=== PATIENT | female | born 1955 | race Caucasian/White ===

== ENCOUNTER → 2020-12-18 08:31 | Outpatient (BNVA) | payer MEDICARE, OTHER, SELFPAY | PROVIDERS: PCP Pediatrics; Visit Provider Hospitalist | DX: R91.8 Other nonspecific abnormal finding of lung field (principal); J70.1 Chronic and other pulmonary manifestations due to radiation; J47.9 Bronchiectasis, uncomplicated; Z79.51 Long term (current) use of inhaled steroids | CPT/HCPCS: 99212 ==

== ENCOUNTER 2021-03-29 09:20 | Outpatient (REF) | payer MEDICARE, OTHER, SELFPAY ==
--- NOTE | ~2021-03-29 | CT_ITS ---
EXAMINATION: CT CHEST WITHOUT CONTRAST CLINICAL INFORMATION: Pulmonary fibrosis pulmonary nodules COMPARISON: Previous chest CT 03/14/2020 TECHNIQUE: Multidetector volumetric CT imaging of the chest was done. Axial MIP volume rendering provided. Sagittal and coronal reformatted images were obtained. This CT examination was performed using dose optimization techniques as appropriate, variously including the following: *Automated exposure control *Adjustment of mA and/or kV according to patient size (this includes techniques or standardized protocols for targeted exams where dose is matched to indication/reason for exam; i.e. extremities or head) *Use of iterative reconstruction technique DLP: 103 mGy-cm FINDINGS: LUNGS: There is biapical pleural parenchymal scarring. There are several small peripheral or subpleural apical pulmonary nodules probably related to scarring that are stable. The largest measures 7 mm in the left upper lobe axial image 26 series 6. There are increased peripheral interstitial markings seen in the left anterior upper lobe probably related to post radiation changes. There is an area of mild bronchial wall thickening and new peribronchial nodules in the left upper lobe, largest pulmonary nodule measuring 3 mm axial image 82 series 6. There are stable small peribronchial nodules or tree-in-bud appearance in the posterior segment of the right upper lobe axial image 89 series 6. There are new areas of mild bronchial wall thickening and peribronchial nodules seen in both lower lobes, for example axial image 117 series 6 near the esophagus and aorta and in the right lower lobe near the spine axial image 119 series 6 that are new. There are areas of bronchial wall thickening and peribronchial nodules seen in the inferior segment of the lingula axial image 126 and the left lower lobe axial image 126 series 6 that are stable. There is chronic atelectasis or scarring in the right middle lobe and lingula at the lung bases for example axial image 134 and 144 series 6 that is stable. There is bronchial wall thickening and peribronchial nodules in the left lower lobe axial image 155 series 6 that is stable. MEDIASTINUM: The thyroid gland is prominent. There are no enlarged hilar or mediastinal lymph nodes. The heart does not appear enlarged. There is coronary artery calcification. There is no pericardial effusion. The thoracic aorta is normal in caliber. PLEURA: There is no pleural effusion. No pleural mass or thickening. AXILLA: The left breast has been removed. There are surgical clips in the left axilla. No chest wall mass or enlarged axillary lymph nodes are seen. UPPER ABDOMEN: Unremarkable. OSSEOUS STRUCTURES: There are mild degenerative changes of the spine. CT/CT chest wo con IMPRESSION: Stable biapical pleural parenchymal scarring. Multiple areas of bronchial wall thickening and peribronchial nodules or tree-in-bud appearance suggestive of airways disease. There are new areas seen in both lower lobes compared to most recent exam February 2020.
== END 2021-03-29 09:21 | disposition home or self-care (01) ==
LOC: HO.CT 09:20
PROVIDERS: PCP Pediatrics; Visit Provider Hospitalist
DX: J84.10 Pulmonary fibrosis, unspecified (principal); R91.8 Other nonspecific abnormal finding of lung field; Z85.3 Personal history of malignant neoplasm of breast
CPT/HCPCS: 71250

== ENCOUNTER → 2021-10-08 09:34 | Outpatient (BNVA) | payer MEDICARE, OTHER, SELFPAY | PROVIDERS: PCP Pediatrics; Visit Provider Hospitalist | DX: J70.1 Chronic and other pulmonary manifestations due to radiation (principal); J47.9 Bronchiectasis, uncomplicated; R91.8 Other nonspecific abnormal finding of lung field | CPT/HCPCS: 99212 ==

== ENCOUNTER → 2021-12-10 08:04 | Outpatient (BNVA) | payer MEDICARE, OTHER, SELFPAY | PROVIDERS: PCP Pediatrics; Visit Provider Nurse Practitioner Family | DX: G20 Parkinson's disease (principal); R91.8 Other nonspecific abnormal finding of lung field; J70.1 Chronic and other pulmonary manifestations due to radiation; Z79.899 Other long term (current) drug therapy | CPT/HCPCS: 99212 ==

== ENCOUNTER → 2022-04-15 08:02 | Outpatient (BNVA) | payer MEDICARE, OTHER, SELFPAY | PROVIDERS: PCP Pediatrics; Visit Provider Nurse Practitioner Family | DX: G20 Parkinson's disease (principal) | CPT/HCPCS: 99212 ==

== ENCOUNTER → 2022-09-26 15:41 | Outpatient (BNVA) | payer MEDICARE, OTHER, SELFPAY | PROVIDERS: PCP Pediatrics; Visit Provider Hospitalist | DX: J47.9 Bronchiectasis, uncomplicated (principal); J70.1 Chronic and other pulmonary manifestations due to radiation; J18.9 Pneumonia, unspecified organism; R91.8 Other nonspecific abnormal finding of lung field | CPT/HCPCS: 99212 ==

== ENCOUNTER → 2022-10-03 08:02 | Outpatient (BNVA) | payer MEDICARE, OTHER, SELFPAY | PROVIDERS: PCP Pediatrics; Visit Provider Nurse Practitioner Family | DX: G20 Parkinson's disease (principal) | CPT/HCPCS: 99212 ==

== ENCOUNTER → 2023-02-03 08:15 | Outpatient (BNVA) | payer MEDICARE, OTHER, SELFPAY | PROVIDERS: PCP Pediatrics; Visit Provider Nurse Practitioner Family | DX: G20 Parkinson's disease (principal); J34.89 Other specified disorders of nose and nasal sinuses | CPT/HCPCS: 99212 ==

== ENCOUNTER 2023-07-18 08:28 | Outpatient (AMB) | payer MEDICARE, OTHER, SELFPAY ==
--- NOTE | 2023-07-18 08:29 | A.OFFVIS_ITS ---
Intake Vital Signs 07/18/23 08:47 Height 5 ft 5 in Weight 124 lb 2 oz BMI 20.7 BP 108/74 Blood Pressure Location Lt brachial Position Sitting Pulse 119 H Pulse Source Pulse Oximeter Pulse Oximetry (%) 86 L Oxygen Delivery Method Room Air Intake Visit Reasons: 4m follow up Parkinson's-LVM Intake Note: Patient present today for 4 month Parkinson follow up visit. 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 Pt denies any significant interval medical history changes. Pt's current PD medication regimen:? Carbidopa levodopa 1 tab bid Do medication effects last between doses:? Yes Do you notice your medications wearing off or kicking in:? No ADL's:? Independent Swallowing:? 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 No issues Orthostatic lightheadedness:? Occasional. Trying to drink better Constipation:? No constipation, but has had more flatulence- using OTC gas-x which helps Freezing:? Occasional leg hesitation- transient Stiffness:? Some leg stiffness w/ the hesitation Tremor:? She does not notice it Falls:? No falls Hallucinations:? None Memory:? Memory is good Sleep:? Sleeping ok- needs to void once a night Exercise:? She is trying to stretching and walking daily [facility] Medical History Breast cancer Bronchiectasis COVID-19 virus infection Parkinson disease Pulmonary nodules Radiation fibrosis of lung Recurrent pneumonia Family History Father Colon cancer Pancreatic cancer Mother Heart disease Brother Heart disease Sister Breast cancer Social History Alcohol intake: never Patient Tobacco Use Status: Never used Tobacco Review of Systems Const All systems reviewed & are unremarkable except as noted in HPI and below Physical Exam Vital Signs: Last Vital Signs Pulse 119 H 07/18/23 08:47 BP 108/74 07/18/23 08:47 Pulse Ox 86 L 07/18/23 08:47 Oxygen Delivery Method Room Air 07/18/23 08:47 BMI result Body Mass Index 20.7 Const General: cooperative and no acute distress HEENT Head: Yes normocephalic Resp Effort & Inspection: normal respiratory effort and able to speak in complete sentences Neuro Other: General: A&O x's 3 Expression:? Mild decreased expression Voice:? Soft voice Tremor:? No tremor Tone:? Mild tone in left elbow FFM:? Mildly decreased Foot taps:? Mildly decreased Gait:? Stands easily, decreased arm swing, short steps, steady gait. Psych:? Pleasant affect Psych Appearance: grossly normal Mental Status: mental status grossly normal Affect: normal affect Assessment & Plan Assessment & Plan (1) Parkinson's disease without dyskinesia: Code(s): G20.A1 - Parkinson's disease without dyskinesia, without mention of fluctuations (2) Difficulty swallowing solids: Code(s): R13.10 - Dysphagia, unspecified Plan Continue carbidopa-levodopa 25-100 mg 1 tab b.i.d. Pt plans to travel to [place] in December- may need to adjust/increase CD-LD to accommodate travel plans. Pt may also consider trying walking poles for her trip. Monitor swallowing- if worsens consider SHIPPING SERVICES SALES REPRESENTATIVE. Continue regular exercising. Pt sees dermatology annually for skin checks. f/u in November or sooner prn. Coding Level of Care Code Est Pt Level 4 (18642) Diagnoses Parkinson's disease without dyskinesia G20.A1 Difficulty swallowing solids R13.10
[2023-07-18 08:47] VITALS: BP 108/74; PULSE 119; O2SAT 86; BMI 20.7
== END 2023-07-18 09:30 | disposition home or self-care (01) ==
PROVIDERS: Visit Provider Nurse Practitioner Family
DX: G20.A1 Parkinson's disease without dyskinesia, without mention of fluctuations (principal); R13.10 Dysphagia, unspecified
CPT/HCPCS: 99214

== ENCOUNTER → 2023-07-18 08:28 | Outpatient (BNVA) | payer MEDICARE, OTHER, SELFPAY | PROVIDERS: Visit Provider Nurse Practitioner Family | DX: G20.A1 Parkinson's disease without dyskinesia, without mention of fluctuations (principal); R13.10 Dysphagia, unspecified | CPT/HCPCS: 99212 ==

== ENCOUNTER 2023-12-15 08:06 | Outpatient (AMB) | payer MEDICARE, OTHER, SELFPAY ==
--- NOTE | 2023-12-15 08:16 | MHC.OFFVIS ---
Intake Vital Signs 12/15/23 08:17 Height 5 ft 5 in Weight 125 lb BMI 20.8 BP 116/62 Blood Pressure Location Rt brachial Position Sitting Respiration 16 Pulse 80 Pulse Source Pulse Oximeter Pulse Oximetry (%) 96 Oxygen Delivery Method Room Air Intake Visit Reasons: 4m follow up Parkinson's - LVM w/ address Intake Note: Pt presents for 4 month follow up for Parkinson's. 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 Pt denies any significant interval medical history changes. Pt's current PD medication regimen:? Carbidopa levodopa 1 tab bid Do medication effects last between doses:? Yes Do you notice your medications wearing off or kicking in:? No ADL's:? Independent Swallowing:? No issues as long as she is taking small bites, alternates w/ fluids as needed Drooling:? No issues Orthostatic lightheadedness:? Occasional. Still trying to drink better Constipation:? No constipation. Freezing:? Occasional leg hesitation- transient Stiffness:? Some leg stiffness w/ the hesitation Tremor:? She does not notice it Falls:? She did have a fall- was carrying bags and a puppy while going up a few steps that did not have a railing. She states she is trying to be more careful. Hallucinations:? None Memory:? Memory is good Sleep:? Sleeping ok Exercise:? She is trying to stretch and walk most days. [facility] Medical History Breast cancer Bronchiectasis COVID-19 virus infection Parkinson disease Pulmonary nodules Radiation fibrosis of lung Recurrent pneumonia Family History Father Colon cancer Pancreatic cancer Mother Heart disease Brother Heart disease Sister Breast cancer Social History Alcohol intake: never Patient Tobacco Use Status: Never used Tobacco Review of Systems Const All systems reviewed & are unremarkable except as noted in HPI and below Physical Exam Vital Signs: Last Vital Signs Pulse 80 12/15/23 08:17 Resp 16 12/15/23 08:17 BP 116/62 12/15/23 08:17 Pulse Ox 96 12/15/23 08:17 Oxygen Delivery Method Room Air 12/15/23 08:17 BMI result Body Mass Index 20.8 Const General: cooperative and no acute distress Resp Effort & Inspection: normal respiratory effort and able to speak in complete sentences Neuro Other: General: A&O x's 3 Expression:? Mild decreased expression Voice:? Soft voice Tremor:? No tremor Tone:? Mild tone in bilateral elbow FFM:? Mildly decreased Foot taps:? Mildly decreased Gait:? Stands easily, decreased arm swing, short steps, steady gait Psych:? Pleasant affect Assessment & Plan Assessment & Plan (1) Parkinson's disease without dyskinesia: Code(s): G20.A1 - Parkinson's disease without dyskinesia, without mention of fluctuations (2) Difficulty swallowing solids: Code(s): R13.10 - Dysphagia, unspecified (3) Fall: Code(s): W19.XXXA - Unspecified fall, initial encounter Plan Continue Carbidopa-levodopa 25-100 mg 1 tab b.i.d.- discussed increasing to help w/ stiffness/freezing, however pt would like to wait for now. Monitor swallowing- if worsens consider CARGO AGENT. Continue increased fluids. Discussed strategies to break mild freezing episodes. Discussed specific fall risks seen in PD- such as situations that increase risk for postural instability- and strategies to reduce fall risk. Continue regular exercising. Pt sees dermatology annually for skin checks. f/u in in 6 months or sooner prn. Medications: Refilled carbidopa-levodopa 25-100 mg 1 tab PO BID 90 days 180 tabs 1RF Coding Level of Care Code Est Pt Level 4 (56799) Diagnoses Parkinson's disease without dyskinesia G20.A1 Difficulty swallowing solids R13.10 Fall W19.XXXA
[2023-12-15 08:17] VITALS: BP 116/62; PULSE 80; RESP 16; O2SAT 96; BMI 20.8
== END 2023-12-15 09:01 | disposition home or self-care (01) ==
PROVIDERS: PCP Pediatrics; Visit Provider Nurse Practitioner Family
DX: G20.A2 Parkinson's disease without dyskinesia, with fluctuations (principal); R13.10 Dysphagia, unspecified; W19.XXXA Unspecified fall, initial encounter
CPT/HCPCS: 99214

== ENCOUNTER → 2023-12-15 08:06 | Outpatient (BNVA) | payer MEDICARE, OTHER, SELFPAY | PROVIDERS: PCP Pediatrics; Visit Provider Nurse Practitioner Family | DX: G20.A1 Parkinson's disease without dyskinesia, without mention of fluctuations (principal); R13.10 Dysphagia, unspecified; Z91.81 History of falling | CPT/HCPCS: 99212 ==

== ENCOUNTER 2023-12-25 14:50 | Outpatient (AMB) | payer MEDICARE, OTHER, SELFPAY ==
[2023-12-25 14:57] VITALS: BP 100/60; PULSE 67; O2SAT 99
--- NOTE | 2023-12-25 14:57 | A.OFFVIS_ITS ---
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 She is recently diagnosed with Parkinson's disease. There was a question of some underlying obstructive sleep apnea. She had a home sleep study then followed by a lab study demonstrating no evidence of any sleep apnea. She did try the CPAP for appeared of time but she could not tolerate any ways. She is happy that she does not have to use it. She has history of pneumonia primarily on the left side. She does developed episodic chest discomfort and also some mucus production with some mucus plugs. But the last week she started developing worsening shortness of breath and coughing along with left-sided chest discomfort and came in to be evaluated. Moderate severity. Today however is better she denies any more chest discomfort in her breathing is back to normal 04/11/2020 the patient is here for pulmonary follow-up visit. Overall she is feeling better. She is using the flutter valve with good response. Her cough is overall better. She denies any significant shortness of breath or chest pain. She has been sleeping well trying to sleep on her side to minimize her apnea. Her Parkinson's seems to be controlled with medications and she continues to exercise regularly. We did review her CT scan of the chest demonstrating new pulmonary nodules measuring 2-3 mm in size. But overall compared to [address] scan looked improved with less mucus plugging less tree-in-bud and less areas of airspace disease. She still has some radiation in use injury to her left lung after having breast cancer. But overall that area stable. She does have some debris in the esophagus concerning for the possibility of micro aspirations in the risks of recurrent pneumonias. Therefore we talked about the importance of alternating her liquids and solids and sleeping elevated and minimizing the amount she eats at 1 time. All this will help decrease her risk of recurrent pneumonias. Based on her pulmonary nodules will plan repeat her CT scan in 1 year. 12/18/2020 the patient is here for pulmonary follow-up visit. Overall she is doing better. She has responded very well to her rescue inhaler in addition to using her flutter valve. She is using the flutter valve twice a day. She is able to clear her secretions. She denies any cough or any significant shortness of breath. She is trying to walk between 2-4 miles a day. She is working on deep breathing exercises. Appears that her Parkinson's is stable with her medications. In the meantime her sleep is better. She is sleeping a full night's sleep on her side and has not had any significant apneic episodes or snoring. Her [place] score is well below 8 which is reassuring. In addition to that when she did have a CT scan of the chest back in February 2020 demonstrating new pulmonary nodules measuring 2-3 mm in size. This is done at [facility]. Will plan to repeat the CT scan 18 months from that 1 which being August 2021. The patient will be seen in the office after the CT scan to review together. 10/08/2021 the patient is here for a pulmonary follow-up visit. Overall the patient has been doing well. She continues use her Acapella valve and a regular basis. Denies any significant mucus production or clearance. Denies any pleuritic discomfort denies any recent lower respiratory infections. Her Parkinson's appears to be stable. She is monitoring closely her swallow. Denies any aspiration events. She is sleeping elevated. We did review her last CT scan of the chest that she had back in March 2021. Was personally by me. Does have minimal changes in the left base with some degree of tree in budding suggesting some degrees of mucus plugging and or bronchiolitis. However, is minimal. No other new findings. We did talk about considering hypertonic saline for chest physical therapy that is something she can use along with her Acapella valve. But at this point she is doing well hold off on the therapy. Will continue with current respiratory therapy and will follow-up in the fall of 2021. The patient has any issues prior to that she is to call for an appointment. 09/26/2022 the patient is here for pulmonary follow-up visit. She continues to do well. Back in January 2022 she did develop bilateral pneumonia. The patient was treated with antibiotics and then subsequently had a repeat chest x-ray in February 2022 demonstrating interval resolution of the airspace disease. I did personally reviewed the x-rays. They do look better although she still has some chronic changes at the bases. Clinically the patient feels better at this time. If the patient develops any respiratory complaints I will have an x-ray order available that she can just come in and get it. She is not using her rescue inhaler. The patient overall denies any chest pains or cough or mucus congestion. In regards of the Parkinson's disease appears to be stable. She is on medication and she feels like she is helping. She does not see any evidence of any progression. Her sleep is well. Denies any headaches in the morning. No significant snoring that is noted. Therefore no additional sleep studies are warranted. 12/25/2023 the patient is here for a pulmonary follow-up visit. Overall she is doing well. Denies any respiratory infections since the last visit about year ago. This is very. Him. As far as the Parkinson's disease appears to be stable. She has been very active with her exercise and keeping up. Denies any difficulty with her eating. Although she is very cautious. Very small bites. She does chin talk and she also alternate liquids and solids. She needs to michelle tor very closely because of the Parkinson's. No recent imaging to review. Her last chest x-ray demonstrated the airspace disease. She should have another x- ray at some point just to have a new baseline. [facility] Medical History Breast cancer Bronchiectasis COVID-19 virus infection Parkinson disease Pulmonary nodules Radiation fibrosis of lung Recurrent pneumonia Family History Father Colon cancer Pancreatic cancer Mother Heart disease Brother Heart disease Sister Breast cancer Social History Alcohol intake: never Patient Tobacco Use Status: Never used Tobacco Review of Systems Const Denies night sweats ENT Denies change in voice, Denies lip swelling, Denies mouth pain, Reports nasal congestion, Reports nasal discharge and Denies tongue swelling Card Denies chest pain Resp Denies cough GI Denies abdominal pain Musc Denies no additional complaints Neuro Denies Neuro-related abnormal movements Psych Denies no additional complaints Bryon/Lymph Denies easy bleeding and Denies lymphadenopathy Aller/Immun Denies lip swelling and Denies tongue swelling Physical Exam Vital Signs: Last Vital Signs Pulse 67 12/25/23 14:57 BP 100/60 12/25/23 14:57 Pulse Ox 99 12/25/23 14:57 Oxygen Delivery Method Room Air 12/25/23 14:57 BMI result Body Mass Index 20.0 Const General: alert HEENT General nose exam: Abnormal external nose present and Nasal discharge present Neck Neck: Yes normal visual inspection, Yes full ROM and Yes no lymphadenopathy Chest Chest palpation & inspection: normal inspection of the chest Resp Effort & Inspection: normal respiratory effort Auscultation: clear to auscultation bilaterally Cardio Rate: regular rate Rhythm: regular rhythm Heart sounds: S1 normal heart sound present and S2 normal heart sound present GI Palpation (GI): Soft to palpation and nontender Auscultation: normal bowel sounds Skin General skin exam: rashes and/or lesions noted Assessment & Plan Assessment & Plan (1) Pulmonary nodules: Code(s): R91.8 - Other nonspecific abnormal finding of lung field (2) Radiation fibrosis of lung: Code(s): J70.1 - Chronic and other pulmonary manifestations due to radiation (3) Bronchiectasis: Code(s): J47.9 - Bronchiectasis, uncomplicated Qualifiers: Bronchiectasis type: uncomplicated Qualified Code(s): J47.9 - Bronchiectasis, uncomplicated Plan CPT with flutter valve start ipratropium nasal spray as needed CXR F/U 1 year Orders: Orders XR chest 2V 12/25/23 J47.9 - Bronchiectasis, uncomplicated, J70.1 - Chronic and other pulmonary manifestations due to radiation Medications: New ipratropium bromide administer into each nostril 2 sprays intranasal TID PRN 15 mL 6RF allergy symptoms Coding Level of Care Code Est Pt Level 4 (65939) Diagnoses Pulmonary nodules R91.8 Radiation fibrosis of lung J70.1 Bronchiectasis without complication J47.9 Bronchiectasis type: uncomplicated Time Spent (min) 16
== END 2023-12-25 15:18 | disposition home or self-care (01) ==
PROVIDERS: PCP Pediatrics; Visit Provider Hospitalist
DX: R91.8 Other nonspecific abnormal finding of lung field (principal); J70.1 Chronic and other pulmonary manifestations due to radiation; J47.9 Bronchiectasis, uncomplicated
CPT/HCPCS: 99214

== ENCOUNTER → 2023-12-25 14:50 | Outpatient (BNVA) | payer MEDICARE, OTHER, SELFPAY | PROVIDERS: PCP Pediatrics; Visit Provider Hospitalist | DX: J70.1 Chronic and other pulmonary manifestations due to radiation (principal); J47.9 Bronchiectasis, uncomplicated; R91.8 Other nonspecific abnormal finding of lung field | CPT/HCPCS: 99212 ==

== ENCOUNTER 2024-12-27 08:28 | Outpatient (AMB) | payer MEDICARE, OTHER, SELFPAY ==
--- NOTE | 2024-12-27 08:29 | MHC.OFFVIS ---
Vital Signs 12/27/24 08:32 Height 5 ft 4 in Weight 124 lb BMI 21.3 BP 110/70 Blood Pressure Location Lt brachial Position Sitting Pulse 74 Pulse Source Pulse Oximeter Pulse Oximetry (%) 98 Oxygen Delivery Method Room Air Intake Visit Reasons: follow up Parkinson's Intake Note: Patient following up for parkinsons disease. 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 by: Self / Same As Patient Allergies No Known Allergies Allergy (Verified 12/27/24 08:34) Medication List - Last Reconciled 12/27/24 by RAI Everett atorvastatin 10 mg PO DAILY calcium pantothenate mg PO carbidopa-levodopa 25-100 mg 1 tab PO BID 90 days ipratropium bromide 2 sprays intranasal TID PRN lactobacillus combination no.9 (Adult 50 Plus Probiotic) 4,000 mmu cells PO DAILY multivitamin 1 tab PO DAILY tobramycin-dexamethasone 0.3-0.1 % 1 drp ophthalmic (eye) BID PRN vitamin B complex (B Complex-Vitamin B12 tablet) 1 tab PO DAILY HPI Comments Details: 69-yr-old female presents for f/u visit for Parkinson's. Pt denies any significant interval medical history changes. Pt's current PD medication regimen:? Carbidopa levodopa 1 tab bid at 7:30am and 4:30pm Do medication effects last between doses:? Yes- but sometimes may dip mid-day but then feels ok before the next dose. Do you notice your medications wearing off or kicking in:? No ADL's:? Independent Swallowing:? No issues as long as she is taking small bites, alternates w/ fluids as needed Drooling:? No issues Orthostatic lightheadedness:? Occasional. Still trying to drink better. Constipation:? No constipation. Freezing:? Occasional leg hesitation- transient Stiffness:? Some leg stiffness w/ the hesitation Tremor:? She does not notice it Falls:? Denies interval falls. Hallucinations:? None Mood: Usually pretty good. Memory:? Memory is good Sleep:? Sleeping ok- but if she drinks more water, will need to void at least once a night. Exercise:? She is trying to stretch and walk most days. [facility] Medical History Breast cancer Bronchiectasis COVID-19 virus infection Parkinson disease Pulmonary nodules Radiation fibrosis of lung Recurrent pneumonia Family History Father Colon cancer Pancreatic cancer Mother Heart disease Brother Heart disease Sister Breast cancer Social History Alcohol intake: never Patient Tobacco Use Status: Never used Tobacco Physical Exam Vital Signs: Last Vital Signs Pulse 74 12/27/24 08:32 BP 110/70 12/27/24 08:32 Pulse Ox 98 12/27/24 08:32 Oxygen Delivery Method Room Air 12/27/24 08:32 BMI result Body Mass Index 21.3 Const General: cooperative and no acute distress Resp Effort & Inspection: normal respiratory effort and able to speak in complete sentences Neuro Other: General: A&O x's 3 Expression:? Mild decreased expression Voice:? Soft voice Tremor:? No tremor Tone:? Mild tone in bilateral R > L elbow FFM:? Mildly decreased, a bit more so on the left Foot taps:? Mildly decreased, more so on the right Gait:? Stands easily, decreased arm swing, short steps, steady gait Psych:? Pleasant affect Assessment & Plan Assessment & Plan (1) Parkinson's disease without dyskinesia: Code(s): G20.A1 - Parkinson's disease without dyskinesia, without mention of fluctuations Category: Medical (2) Difficulty swallowing solids: Code(s): R13.10 - Dysphagia, unspecified Category: Medical Plan Continue Carbidopa-levodopa 25-100 mg 1 tab b.i.d. Monitor swallowing- if worsens consider POT HOLDER BINDER. Continue increased fluids. Continue regular exercising. Pt sees dermatology annually for skin checks. f/u in in 6 months or sooner prn. Coding Level of Care Code Est Pt Level 4 (34455) Diagnoses Parkinson's disease without dyskinesia G20.A1 Difficulty swallowing solids R13.10
[2024-12-27 08:32] VITALS: BP 110/70; PULSE 74; O2SAT 98; BMI 21.3
--- OUTSIDE RECORDS SUMMARY | 2024-12-27 09:01 | XMS_ITS | Data Portability ---
Author Organization [facility], Main Office Address [address] [place] [address] Care Team Providers Care Oven Drier Tender Name Role Phone ONUR DELA CRUZ Primary Care Provider LALA PARSONS Loader Operator [phone] GIOVANNA DIEHL Stoneworking Sander SATHYA DAVID Neurologist RYAN ELDRIDGE Putty Maker [phone] ASHIA WRIGHT Chief Creative Officer ANGELITA RAJPUT Oil Dipper TARA TRAN Net Developer Software Engineer C GAZEBO Industrial Psychology Teacher [phone] Assessment Encounter Date Assessment Date Assessment LastModified by Organization Details LastModified Time 02/01/2022 02/01/2022 This service was provided using telemedicine. Patient consented to video & audio visit Patient was located in the [facility]. Provider was located in the office. No other persons participated in the telemedicine visit except for the patient unless otherwise indicated here. {{}} Total time of visit was 17 minutes. [email or web address] Not available 02/01/2022 14:54:57 02/08/2022 02/08/2022 This service was provided using telemedicine. Patient consented to video & audio visit Patient was located in the [facility]. Provider was located in the office. No other persons participated in the telemedicine visit except for the patient unless otherwise indicated here. {{}} Total time of visit was 18 minutes. [email or web address] Not available 02/08/2022 10:30:27 07/25/2023 07/25/2023 This service was provided using telemedicine. Patient consented to video & audio visit Patient was located in the [facility]. Provider was located in the office. No other persons participated in the telemedicine visit except for the patient unless otherwise indicated here. {{}} Total time of visit was 21 minutes. [email or web address] Not available 07/25/2023 11:24:36 Plan of Treatment Reminders Order Date Submit Date Provider Last Modified By Organization Details Last Modified Time Details Appointments FOLLOW UP 2024 10:00A M Onur Dela Cruz MD Not available Not available Not available Lab lipid panel, serum 2023 024 [facility], [address], [place], [address], 07/24/2024 06:09:47 CMP, serum or plasma 2023 024 [facility], [address], [place], [address], 07/24/2024 06:09:47 vitamin D, 25-hydro xy, total, serum 2023 024 [facility] (Centralized Electronic Ordering - All Locations), Patient Can Go To The Location Of Their Choice, [id number] 07/24/2024 06:09:48 CBC w/ auto diff 2023 024 [facility], [address], [place], [address], 07/24/2024 06:09:46 LDL, serum 2022 023 [facility], [address], [place], [address], 09/01/2023 03:06:20 choleste rol, total, serum 2022 023 [facility], [address], [place], [address], 09/01/2023 03:06:20 HDL choleste rol, serum 2022 023 [facility], [address], [place], [address], 09/01/2023 03:06:21 triglyce rides, serum 2022 023 [facility], [address], [place], [address], 09/01/2023 03:06:21 CMP, serum or plasma 2022 023 [facility], [address], [place], [address], 09/01/2023 03:06:21 CK (creatin e kinase), total, serum 2022 023 [facility], [address], [place], [address], 09/01/2023 03:06:21 CBC w/ auto diff 2022 023 [facility], [address], [place], [address], 07/18/2023 15:43:36 lipid panel, serum 2022 023 [facility], [address], [place], [address], 07/18/2023 17:03:16 CMP, serum or plasma 2022 023 [facility], [address], [place], [address], 07/18/2023 17:03:14 Referral None recorded . Procedures None recorded . Surgeries None recorded . Imaging bone density 2023 024 [facility], [address], [address], [place], [address], 11/22/2024 06:21:34 MAMMO, screenin g, bilatera l - Perform Diagnost ic Mammogra m and Breast Ultrasou nd if needed / Perform Ultrasou nd Guided Aspirati on and/or Breast Biopsy if warrante d [address] [facility], [address], [address], [place], [address], 07/30/2024 09:39:00 MAMMO, screenin g, bilatera l - Perform Diagnost ic Mammogra m and Breast Ultrasou nd if needed / Perform Ultrasou nd Guided Aspirati on and/or Breast Biopsy if warrante d 2022 023 [facility] Not available 07/28/2023 09:29:26 XR, chest, 2 view - follow up on bibasila r infiltra donya 2021 022 [facility] (Imaging), [address] [place], [address], 03/07/2022 12:58:32 Medication Orders atorvast atin 10 mg tablet 2022 023 [facility]/Pharmacy #[id number], [address] [place], [address], 07/25/2023 11:17:20 oseltami vir 75 mg capsule 2021 022 [facility]/Pharmacy #[id number], [address] [place], [address], 02/08/2022 09:52:56 Patient TargetsNo targets recorded. Patient Instructions Encounter Date Encounter Id Patient Instructions Last Modified By Organization Details Last Modified Time 02/01/2022 [id number] cough: care instructions gregoria Not available 02/01/2022 14:50:03 02/08/2022 [id number] pneumonia: care instructions awychowski Not available 02/08/2022 10:37:35 pleurisy: care instructions awychowski Not available 02/08/2022 10:30:33 07/07/2023 [id number] advance care planning: care instructions awychowski Not available 07/07/2023 14:49:25 preventing falls: care instructions awychowski Not available 07/07/2023 14:49:25 medicare preventive services guide (female 74yrs and under) awychowski Not available 07/07/2023 14:49:25 07/09/2024 [id number] preventing falls: care instructions awychowski Not available 07/09/2024 11:11:26 well visit, over 65: care instructions awychowski Not available 07/09/2024 11:11:26 medicare preventive services guide (female 74yrs and under) [email or web address] Not available 07/09/2024 11:11:26 Reason for Referral None Reported. Results Created Date Observation Date Name Description Value Unit Range Abnormal Flag Note LastModifiedBy Organization Detail LastModifiedTime 07/18/2007/18/2023 COMPL ETE CBC WITH DIFF WBC 5.7 K/mm3 (4.0-1 1.0) Not Available [facility] (Centralized Electronic Ordering - All Locations) Patient Can Go To The Location Of Their Choice, [id number] 07/18/2023 15:43:36 07/18/2007/18/2023 COMPL ETE CBC WITH DIFF RBC 4.60 M/mm3 (4.20- 5.40) Not Available [facility] (Centralized Electronic Ordering - All Locations) Patient Can Go To The Location Of Their Choice, [id number] 07/18/2023 15:43:36 07/18/2007/18/2023 COMPL ETE CBC WITH DIFF HGB 13.8 gm/dL (11.7- 15.5) Not Available [facility] (Centralized Electronic Ordering - All Locations) Patient Can Go To The Location Of Their Choice, [id number] 07/18/2023 15:43:36 07/18/2007/18/2023 COMPL ETE CBC WITH DIFF HCT 44.4 % (35.7- 45.8) Not Available [facility] (Centralized Electronic Ordering - All Locations) Patient Can Go To The Location Of Their Choice, [id number] 07/18/2023 15:43:36 07/18/2007/18/2023 COMPL ETE CBC WITH DIFF MCV 96.5 fL (80.0- 100.0) Not Available [facility] (Centralized Electronic Ordering - All Locations) Patient Can Go To The Location Of Their Choice, 07/18/2023 15:43:36 07/18/2007/18/2023 COMPL ETE CBC WITH DIFF MCH 30.0 pg (27.0- 34.0) Not Available [facility] (Centralized Electronic Ordering - All Locations) Patient Can Go To The Location Of Their Choice, 07/18/2023 15:43:36 07/18/2007/18/2023 COMPL ETE CBC WITH DIFF MCHC 31.1 g/dL (33.0- 37.0) low Not Available [facility] (Centralized Electronic Ordering - All Locations) Patient Can Go To The Location Of Their Choice, 07/18/2023 15:43:36 07/18/2007/18/2023 COMPL ETE CBC WITH DIFF plt 186 K/mm3 (150-4 60) Not Available [facility] (Centralized Electronic Ordering - All Locations) Patient Can Go To The Location Of Their Choice, 07/18/2023 15:43:36 07/18/2007/18/2023 COMPL ETE CBC WITH DIFF RDW-SD 49.4 fL (<47.0 ) high Not Available [facility] (Centralized Electronic Ordering - All Locations) Patient Can Go To The Location Of Their Choice, 07/18/2023 15:43:36 07/18/2007/18/2023 COMPL ETE CBC WITH DIFF MPV 11.1 fL (9.4-1 2.4) Not Available [facility] (Centralized Electronic Ordering - All Locations) Patient Can Go To The Location Of Their Choice, 07/18/2023 15:43:36 07/18/2007/18/2023 COMPL ETE CBC WITH DIFF automated NRBC 0.0 #/100 _WBC' s Not Available [facility] (Centralized Electronic Ordering - All Locations) Patient Can Go To The Location Of Their Choice, 07/18/2023 15:43:36 07/18/2007/18/2023 COMPL ETE CBC WITH DIFF abs. NRBC 0.0 K/mm3 Not Available [facility] (Centralized Electronic Ordering - All Locations) Patient Can Go To The Location Of Their Choice, 07/18/2023 15:43:36 07/18/2007/18/2023 COMPL ETE CBC WITH DIFF neut # 3.6 K/mm3 (1.3-7 .0) Not Available [facility] (Centralized Electronic Ordering - All Locations) Patient Can Go To The Location Of Their Choice, 07/18/2023 15:43:36 07/18/2007/18/2023 COMPL ETE CBC WITH DIFF lymph # 1.5 K/mm3 (0.8-3 .1) Not Available [facility] (Centralized Electronic Ordering - All Locations) Patient Can Go To The Location Of Their Choice, 07/18/2023 15:43:36 07/18/2007/18/2023 COMPL ETE CBC WITH DIFF mono# 0.4 K/mm3 (0.4-0 .9) Not Available [facility] (Centralized Electronic Ordering - All Locations) Patient Can Go To The Location Of Their Choice, 07/18/2023 15:43:36 07/18/2007/18/2023 COMPL ETE CBC WITH DIFF eo # 0.2 K/mm3 (0.0-0 .4) Not Available [facility] (Centralized Electronic Ordering - All Locations) Patient Can Go To The Location Of Their Choice, 07/18/2023 15:43:36 07/18/2007/18/2023 COMPL ETE CBC WITH DIFF baso # 0.1 K/mm3 (0.0-0 .1) Not Available [facility] (Centralized Electronic Ordering - All Locations) Patient Can Go To The Location Of Their Choice, 07/18/2023 15:43:36 07/18/2007/18/2023 COMPL ETE CBC WITH DIFF abs. imm gran 0.0 K/mm3 Not Available [facility] ([facility] Ordering - All Locations) Patient Can Go To The Location Of Their Choice, 07/18/2023 15:43:36 07/18/2007/18/2023 COMPL ETE CBC WITH DIFF neut 63.5 % (44-76 ) Not Available [facility] (Centralized Electronic Ordering - All Locations) Patient Can Go To The Location Of Their Choice, 07/18/2023 15:43:36 07/18/2007/18/2023 COMPL ETE CBC WITH DIFF lymph 25.8 % (15-43 ) Not Available [facility] (Centralized Electronic Ordering - All Locations) Patient Can Go To The Location Of Their Choice, 07/18/2023 15:43:36 07/18/2007/18/2023 COMPL ETE CBC WITH DIFF monocyte 6.7 % (4.5-1 0.5) Not Available [facility] (Centralized Electronic Ordering - All Locations) Patient Can Go To The Location Of Their Choice, 07/18/2023 15:43:36 07/18/2007/18/2023 COMPL ETE CBC WITH DIFF eo 2.7 % (0-6) Not Available [facility] (Centralized Electronic Ordering - All Locations) Patient Can Go To The Location Of Their Choice, 07/18/2023 15:43:36 07/18/2007/18/2023 COMPL ETE CBC WITH DIFF baso 0.9 % (0-2) Not Available [facility] (Centralized Electronic Ordering - All Locations) Patient Can Go To The Location Of Their Choice, 07/18/2023 15:43:36 07/18/2007/18/2023 COMPL ETE CBC WITH DIFF imm gran 0.4 % Not Available [facility] (Centralized Electronic Ordering - All Locations) Patient Can Go To The Location Of Their Choice, 07/18/2023 15:43:36 07/18/2007/18/2023 COMPR EHENS BRIONNA METAB OLIC PANL glucose 100 mg/dL (70-99 ) high Fasti ng Not Available [facility] (Centralized Electronic Ordering - All Locations) Patient Can Go To The Location Of Their Choice, 07/18/2023 17:03:14 07/18/2007/18/2023 COMPR EHENS BRIONNA METAB OLIC PANL BUN 28 mg/dL (8-23) high Not Available [facility] (Centralized Electronic Ordering - All Locations) Patient Can Go To The Location Of Their Choice, 07/18/2023 17:03:14 07/18/2007/18/2023 COMPR EHENS BRIONNA METAB OLIC PANL creatinine 1.1 mg/dL (0.5-1 .0) high Not Available [facility] (Centralized Electronic Ordering - All Locations) Patient Can Go To The Location Of Their Choice, 07/18/2023 17:03:14 07/18/2007/18/2023 COMPR EHENS BRIONNA METAB OLIC PANL sodium 141 mmol/ L (133-1 45) Not Available [facility] (Centralized Electronic Ordering - All Locations) Patient Can Go To The Location Of Their Choice, 07/18/2023 17:03:14 07/18/2007/18/2023 COMPR EHENS BRIONNA METAB OLIC PANL potassium 4.6 mmol/ L (3.6-5 .2) Not Available [facility] (Centralized Electronic Ordering - All Locations) Patient Can Go To The Location Of Their Choice, 07/18/2023 17:03:14 07/18/2007/18/2023 COMPR EHENS BRIONNA METAB OLIC PANL chloride 102 mmol/ L (98-10 7) Not Available [facility] (Centralized Electronic Ordering - All Locations) Patient Can Go To The Location Of Their Choice, 07/18/2023 17:03:14 07/18/2007/18/2023 COMPR EHENS BRIONNA METAB OLIC PANL bicarbonate 30 mmol/ L (22-29 ) high Not Available [facility] (Centralized Electronic Ordering - All Locations) Patient Can Go To The Location Of Their Choice, 07/18/2023 17:03:14 07/18/2007/18/2023 COMPR EHENS BRIONNA METAB OLIC PANL anion gap 9 (4-17) Not Available [facility] (Centralized Electronic Ordering - All Locations) Patient Can Go To The Location Of Their Choice, 07/18/2023 17:03:14 07/18/2007/18/2023 COMPR EHENS BRIONNA METAB OLIC PANL albumin 4.7 gm/dL (3.4-4 .8) Not Available [facility] (Centralized Electronic Ordering - All Locations) Patient Can Go To The Location Of Their Choice, 07/18/2023 17:03:14 07/18/2007/18/2023 COMPR EHENS BRIONNA METAB OLIC PANL calcium 10.2 mg/dL (8.6-1 0.5) Not Available [facility] (Centralized Electronic Ordering - All Locations) Patient Can Go To The Location Of Their Choice, 07/18/2023 17:03:14 07/18/2007/18/2023 COMPR EHENS BRIONNA METAB OLIC PANL bilirubin,to esequiel 0.4 mg/dL (0-1.2 ) Not Available [facility] (Centralized Electronic Ordering - All Locations) Patient Can Go To The Location Of Their Choice, 07/18/2023 17:03:14 07/18/2007/18/2023 COMPR EHENS BRIONNA METAB OLIC PANL total protein 6.9 gm/dL (6.2-8 .2) Not Available [facility] (Centralized Electronic Ordering - All Locations) Patient Can Go To The Location Of Their Choice, 07/18/2023 17:03:14 07/18/2007/18/2023 COMPR EHENS BRIONNA METAB OLIC PANL Ag ratio 2.1 Not Available [facility] (Centralized Electronic Ordering - All Locations) Patient Can Go To The Location Of Their Choice, 07/18/2023 17:03:14 07/18/2007/18/2023 COMPR EHENS BRIONNA METAB OLIC PANL AST 31 U/L (0-32) Not Available [facility] (Centralized Electronic Ordering - All Locations) Patient Can Go To The Location Of Their Choice, 07/18/2023 17:03:14 07/18/2007/18/2023 COMPR EHENS BRIONNA METAB OLIC PANL alk phos 81 U/L (35-10 4) Not Available [facility] ([facility]ized Electronic Ordering - All Locations) Patient Can Go To The Location Of Their Choice, 07/18/2023 17:03:14 07/18/2007/18/2023 COMPR EHENS BRIONNA METAB OLIC PANL ALT 11 U/L (0-33) Not Available [facility] ([facility]ized Electronic Ordering - All Locations) Patient Can Go To The Location Of Their Choice, 07/18/2023 17:03:14 07/18/2007/18/2023 COMPR EHENS BRIONNA METAB OLIC PANL estimated GFR creatinine 57 mL/mi n/1.7 3_M2 Creat inine based estim ated glome rular filtr ation (eGFR ) in adult s is calcu lated using the Natio nal Kidne y Found ation recom lenka d 2020 CKD-E PI equat ion. Estim ates GFR from serum creat inine , age and sex. Not Available [facility] (Centralized Electronic Ordering - All Locations) Patient Can Go To The Location Of Their Choice, 07/18/2023 17:03:14 07/18/2007/18/2023 LIPID PANEL cholesterol, total 253 mg/dL (<200) high Not Available [facility] ([facility] Ordering - All Locations) Patient Can Go To The Location Of Their Choice, 07/18/2023 17:03:15 07/18/2007/18/2023 LIPID PANEL triglyceride 80 mg/dL (<150) Fasti ng Not Available [facility] ([facility]ized Electronic Ordering - All Locations) Patient Can Go To The Location Of Their Choice, 07/18/2023 17:03:15 07/18/2007/18/2023 LIPID PANEL HDL chol 79 mg/dL (>39) Not Available [facility] (Centralized Electronic Ordering - All Locations) Patient Can Go To The Location Of Their Choice, 07/18/2023 17:03:15 07/18/2007/18/2023 LIPID PANEL LDL cholesterol, calculated 158 mg/dL (0-130 ) high Not Available [facility] ([facility]ized Electronic Ordering - All Locations) Patient Can Go To The Location Of Their Choice, 07/18/2023 17:03:15 07/18/2007/18/2023 LIPID PANEL non HDL cholesterol (calc) 174 mg/dL (<160) high Not Available [facility] ([facility] Order[facility] - All Locations) Patient Can Go To The Location Of Their Choice, 07/18/2023 17:03:15 07/28/2007/28/2023 LAB ONLY URINA LYSIS appear/color COLOR LESS CLEAR Not Available [facility] ([facility]ized Electronic Ordering - All Locations) Patient Can Go To The Location Of Their Choice, 07/28/2023 15:00:16 07/28/2007/28/2023 LAB ONLY URINA LYSIS sp. gravity 1.007 (1.002 -1.030 ) Not Available [facility] ([facility]ized Electronic Ordering - All Locations) Patient Can Go To The Location Of Their Choice, [id number] 07/28/2023 15:00:16 07/28/2007/28/2023 LAB ONLY URINA LYSIS urine pH 6.0 (5.0-8 .0) Not Available [facility] ([facility]ized Electronic Ordering - All Locations) Patient Can Go To The Location Of Their Choice, [id number] 07/28/2023 15:00:16 07/28/2007/28/2023 LAB ONLY URINA LYSIS urine albumin NEGATI VE (neg) Not Available [facility] ([facility]ized Electronic Ordering - All Locations) Patient Can Go To The Location Of Their Choice, [id number] 07/28/2023 15:00:16 07/28/2007/28/2023 LAB ONLY URINA LYSIS urine glucose NEGATI VE (neg) Not Available [facility] ([facility] Ordering - All Locations) Patient Can Go To The Location Of Their Choice, [id number] 07/28/2023 15:00:16 07/28/2007/28/2023 LAB ONLY URINA LYSIS urine ketones NEGATI VE (neg) Not Available [facility] ([facility] Ordering - All Locations) Patient Can Go To The Location Of Their Choice, [id number] 07/28/2023 15:00:16 07/28/2007/28/2023 LAB ONLY URINA LYSIS urine bilirubin NEGATI VE (neg) Not Available [facility] ([facility] Ordering - All Locations) Patient Can Go To The Location Of Their Choice, [id number] 07/28/2023 15:00:16 07/28/2007/28/2023 LAB ONLY URINA LYSIS urine hemoglobin NEGATI VE (neg) Not Available [facility] ([facility] Ordering - All Locations) Patient Can Go To The Location Of Their Choice, [id number] 07/28/2023 15:00:16 07/28/2007/28/2023 LAB ONLY URINA LYSIS urine nitrite NEGATI VE (neg) Not Available [facility] ([facility] Ordering - All Locations) Patient Can Go To The Location Of Their Choice, [id number] 07/28/2023 15:00:16 07/28/2007/28/2023 LAB ONLY URINA LYSIS urine leukocyte NEGATI VE (neg) Not Available [facility] ([facility]ized Electronic Ordering - All Locations) Patient Can Go To The Location Of Their Choice, [facility] 07/28/2023 15:00:16 07/28/2007/28/2023 LAB ONLY URINA LYSIS urobilinogen NORMAL mg/dL (norm) Not Available [facility] ([facility] - All Locations) Patient Can Go To The Location Of Their Choice, [facility] 07/28/2023 15:00:16 07/28/2007/28/2023 LAB ONLY URINA LYSIS urine WBCs <1 /hpf (0-5) Not Available [facility] ([facility] Ordering - All Locations) Patient Can Go To The Location Of Their Choice, [facility] 07/28/2023 15:00:16 07/28/2007/28/2023 LAB ONLY URINA LYSIS urine RBCs 1 /hpf (0-3) Not Available [facility] ([facility] Ordering - All Locations) Patient Can Go To The Location Of Their Choice, [facility] 07/28/2023 15:00:16 07/28/2007/28/2023 LAB ONLY URINA LYSIS mucus SLIGHT /lpf Not Available [facility] ([facility] Electronic Ordering - All Locations) Patient Can Go To The Location Of Their Choice, [facility] 07/28/2023 15:00:16 07/28/2007/28/2023 LAB ONLY URINA LYSIS squamous epith <1 /hpf (0-8) Not Available [facility] ([facility] Order[facility] - All Locations) Patient Can Go To The Location Of Their Choice, [facility] 07/28/2023 15:00:16 07/28/2007/28/2023 BASIC METAB OLIC PANEL glucose 105 mg/dL (70-99 ) high Fasti ng Not Available [facility] ([facility] Ordering - All Locations) Patient Can Go To The Location Of Their Choice, [id number] 07/28/2023 16:26:40 07/28/2007/28/2023 BASIC METAB OLIC PANEL BUN 25 mg/dL (8-23) high Not Available [facility] ([facility]ized Electronic Ordering - All Locations) Patient Can Go To The Location Of Their Choice, [facility] 07/28/2023 16:26:40 07/28/2007/28/2023 BASIC METAB OLIC PANEL creatinine 0.8 mg/dL (0.5-1 .0) Not Available [facility] ([facility] Ordering - All Locations) Patient Can Go To The Location Of Their Choice, [id number] 07/28/2023 16:26:40 07/28/20 23 07/28/2023 BASIC METAB OLIC PANEL sodium 137 mmol/ L (133-1 45) Not Available [facility] ([facility] Electronic Ordering - All Locations) Patient Can Go To The Location Of Their Choice, [id number] 07/28/2023 16:26:40 07/28/2007/28/2023 BASIC METAB OLIC PANEL potassium 4.3 mmol/ L (3.6-5 .2) Not Available [facility] ([facility]ized Electronic Ordering - All Locations) Patient Can Go To The Location Of Their Choice, [id number] 07/28/2023 16:26:40 07/28/2007/28/2023 BASIC METAB OLIC PANEL chloride 102 mmol/ L (98-10 7) Not Available [facility] ([facility] Ordering - All Locations) Patient Can Go To The Location Of Their Choice, [id number] 07/28/2023 16:26:40 07/28/2007/28/2023 BASIC METAB OLIC PANEL bicarbonate 27 mmol/ L (22-29 ) Not Available [facility] ([facility] Electronic Ordering - All Locations) Patient Can Go To The Location Of Their Choice, [id number] 07/28/2023 16:26:40 07/28/2007/28/2023 BASIC METAB OLIC PANEL anion gap 8 (4-17) Not Available [facility] ([facility] Electronic Ordering - All Locations) Patient Can Go To The Location Of Their Choice, [id number] 07/28/2023 16:26:40 07/28/2007/28/2023 BASIC METAB OLIC PANEL calcium 9.3 mg/dL (8.6-1 0.5) Not Available [facility] ([facility]ized Electronic Ordering - All Locations) Patient Can Go To The Location Of Their Choice, [id number] 07/28/2023 16:26:40 07/28/2007/28/2023 BASIC METAB OLIC PANEL estimated GFR creatinine 80 mL/mi n/1.7 3_M2 Creat inine based estim ated glome yordanlar filtr ation (eGFR ) in adult s is calcu lated using the Natio nal Kidne y Found ation recom lenka d 2021 CKD-E PI equat ion. Estim ates GFR from serum creat inine , age and sex. Not Available [facility] (Centralized Electronic Ordering - All Locations) Patient Can Go To The Location Of Their Choice, [id number] 07/28/2023 16:26:40 07/23/20 24 07/23/2024 CBC WITH DIFFE RENTI AL/PL ATELE T WBC 7.4 x10e3 /uL 3.4-10 .8 normal Not Available [facility] ([facility]) [address] [facility], [place], [address], 07/24/2024 06:09:46 07/23/20 24 07/23/2024 CBC WITH DIFFE RENTI AL/PL ATELE T RBC 4.52 x10e6 /uL 3.77-5 .28 normal Not Available [facility] ([facility]) [address] [place], [address], 07/24/2024 06:09:46 07/23/20 24 07/23/2024 CBC WITH DIFFE RENTI AL/PL ATELE T hemoglobin 14.1 g/dL 11.1-1 5.9 normal Not Available [facility] ([facility]) [address] [facility], [place], [address], 07/24/2024 06:09:46 07/23/20 24 07/23/2024 CBC WITH DIFFE RENTI AL/PL ATELE T hematocrit 44.2 % 34.0-4 6.6 normal Not Available [facility] ([facility]) [address] [facility], [place], [address], 07/24/2024 06:09:46 07/23/20 24 07/23/2024 CBC WITH DIFFE RENTI AL/PL ATELE T MCV 98 fL 79-97 above high normal Not Available [facility] ([facility]) [address] [place], [address], 07/24/2024 06:09:46 07/23/20 24 07/23/2024 CBC WITH DIFFE RENTI AL/PL ATELE T MCH 31.2 pg 26.6-3 3.0 normal Not Available [facility] ([facility]) [address] [facility], [place], [address], 07/24/2024 06:09:46 07/23/20 24 07/23/2024 CBC WITH DIFFE RENTI AL/PL ATELE T MCHC 31.9 g/dL 31.5-3 5.7 normal Not Available [facility] ([facility]) [address] [facility], [place], [address], 07/24/2024 06:09:46 07/23/20 24 07/23/2024 CBC WITH DIFFE RENTI AL/PL ATELE T RDW 12.2 % 11.7-1 5.4 Not Available [facility] ([facility]) [address] [facility], [place], [address], 07/24/2024 06:09:46 07/23/20 24 07/23/2024 CBC WITH DIFFE RENTI AL/PL ATELE T platelets 166 x10e3 /uL 150-45 0 normal Not Available [facility] ([facility]) [address] [place], [address], 07/24/2024 06:09:46 07/23/20 24 07/23/2024 CBC WITH DIFFE RENTI AL/PL ATELE T neutrophils 70 % not estab. normal Not Available [facility] ([facility]) [address] [place], [address], 07/24/2024 06:09:46 07/23/20 24 07/23/2024 CBC WITH DIFFE RENTI AL/PL ATELE T lymphs 20 % not estab. normal Not Available [facility] ([facility]) [address] [facility], [place], [address], 07/24/2024 06:09:46 07/23/20 24 07/23/2024 CBC WITH DIFFE RENTI AL/PL ATELE T monocytes 7 % not estab. normal Not Available [facility] ([facility]) [address] [place], [address], 07/24/2024 06:09:46 07/23/20 24 07/23/2024 CBC WITH DIFFE RENTI AL/PL ATELE T eos 2 % not estab. normal Not Available [facility] ([facility]) [address] [place], [address], 07/24/2024 06:09:46 07/23/20 24 07/23/2024 CBC WITH DIFFE RENTI AL/PL ATELE T basos 1 % not estab. 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 0 normal Not Available [facility] ([facility]) [address] [place], [address], 07/24/2024 06:09:46 07/23/20 24 07/23/2024 CBC WITH DIFFE RENTI AL/PL ATELE T lymphs (absolute) 1.5 x10e3 /uL 0.7-3. 1 normal Not Available [facility] ([facility]) [address] [place], [address], 07/24/2024 06:09:46 07/23/20 24 07/23/2024 CBC WITH DIFFE RENTI AL/PL ATELE T monocytes(ab solute) 0.5 x10e3 /uL 0.1-0. 9 normal Not Available [facility] ([facility]) [address] [facility], [place], [address], 07/24/2024 06:09:46 07/23/20 24 07/23/2024 CBC WITH DIFFE RENTI AL/PL ATELE T eos (absolute) 0.1 x10e3 /uL 0.0-0. 4 normal Not Available [facility] ([facility]) [address] [facility], [place], [address], 07/24/2024 06:09:46 07/23/20 24 07/23/2024 CBC WITH DIFFE RENTI AL/PL ATELE T baso (absolute) 0.1 x10e3 /uL 0.0-0. 2 normal Not Available [facility] ([facility]) [address] [facility], [place], [address], 07/24/2024 06:09:46 07/23/20 24 07/23/2024 CBC WITH DIFFE RENTI AL/PL ATELE T immature granulocytes 0 % not estab. Not Available [facility] ([facility]) [address] [facility], [place], [address], 07/24/2024 06:09:46 07/23/20 24 07/23/2024 CBC WITH DIFFE RENTI AL/PL ATELE T immature grans (abs) 0.0 x10e3 /uL 0.0-0. 1 Not Available [facility] ([facility]) [address] [facility], [place], [address], 07/24/2024 06:09:46 07/23/20 24 07/23/2024 CBC WITH DIFFE RENTI AL/PL ATELE T NRBC TUNNEL KILN OPERATOR Not Available [facility] ([facility]) [address] [facility], [place], [address], 07/24/2024 06:09:46 07/23/20 24 07/23/2024 CBC WITH DIFFE RENTI AL/PL ATELE T hematology comments: TUNNEL KILN OPERATOR Not Available [facility] ([facility]) [address] [place], [address], 07/24/2024 06:09:46 07/23/20 24 07/24/2024 COMP. METAB OLIC PANEL (14) glucose 94 mg/dL 70-99 normal Not Available [facility] ([facility]) [address] [facility] [place], [address], 07/24/2024 06:09:47 07/23/20 24 07/24/2024 COMP. METAB OLIC PANEL (14) BUN 28 mg/dL 8-27 above high normal Not Available [facility] ([facility]) [address] [facility] [place], [address], 07/24/2024 06:09:47 07/23/20 24 07/24/2024 COMP. METAB OLIC PANEL (14) creatinine 1.04 mg/dL 0.57-1 .00 above high normal Not Available [facility] ([facility]) [address] [facility] [place], [address], 07/24/2024 06:09:47 07/23/20 24 07/24/2024 COMP. METAB OLIC PANEL (14) eGFR 57 mL/mi n/1.7 3 >59 below low normal Not Available [facility] ([facility]) [address] [facility] [place], [address], 07/24/2024 06:09:47 07/23/20 24 07/24/2024 COMP. METAB OLIC PANEL (14) BUN/creatini ne ratio 27 12-28 normal Not Available [facility] ([facility]) [address] [facility] [place], [address], 07/24/2024 06:09:47 07/23/20 24 07/24/2024 COMP. METAB OLIC PANEL (14) sodium 141 mmol/ L 134-14 4 normal Not Available [facility] ([facility]) [address] [facility] [place], [address], 07/24/2024 06:09:47 07/23/20 24 07/24/2024 COMP. METAB OLIC PANEL (14) potassium 4.3 mmol/ L 3.5-5. 2 normal Not Available [facility] ([facility]) [address] [place], [address], 07/24/2024 06:09:47 07/23/20 24 07/24/2024 COMP. METAB OLIC PANEL (14) chloride 101 mmol/ L 96-106 normal Not Available [facility] ([facility]) [address] [place], [address], 07/24/2024 06:09:47 07/23/20 24 07/24/2024 COMP. METAB OLIC PANEL (14) carbon dioxide, total 22 mmol/ L 20-29 normal Not Available [facility] ([facility]) [address] [facility] [place], [address], 07/24/2024 06:09:47 07/23/20 24 07/24/2024 COMP. METAB OLIC PANEL (14) calcium 9.4 mg/dL 8.7-10 .3 normal Not Available [facility] ([facility]) [address] [facility] [place], [address], 07/24/2024 06:09:47 07/23/20 24 07/24/2024 COMP. METAB OLIC PANEL (14) protein, total 7.2 g/dL 6.0-8. 5 normal Not Available [facility] ([facility]) [address] [facility] [place], [address], 07/24/2024 06:09:47 07/23/20 24 07/24/2024 COMP. METAB OLIC PANEL (14) albumin 4.3 g/dL 3.8-4. 8 normal Not Available [facility] ([facility]) [address] [facility] [place], [address], 07/24/2024 06:09:47 07/23/20 24 07/24/2024 COMP. METAB OLIC PANEL (14) globulin, total 2.9 g/dL 1.5-4. 5 Not Available [facility] ([facility]) [address] [facility] [place], [address], 07/24/2024 06:09:47 07/23/20 24 07/24/2024 COMP. METAB OLIC PANEL (14) bilirubin, total 0.5 mg/dL 0.0-1. 2 normal Not Available [facility] ([facility]) [address] [facility] [place], [address], 07/24/2024 06:09:47 07/23/20 24 07/24/2024 COMP. METAB OLIC PANEL (14) alkaline phosphatase 91 IU/L 44-121 normal Not Available [facility] ([facility]) [address] [facility] [place], [address], 07/24/2024 06:09:47 07/23/20 24 07/24/2024 COMP. METAB OLIC PANEL (14) AST (SGOT) 41 IU/L 0-40 above high normal Not Available [facility] ([facility]) [address] [facility] [place], [address], 07/24/2024 06:09:47 07/23/20 24 07/24/2024 COMP. METAB OLIC PANEL (14) ALT (SGPT) 32 IU/L 0-32 normal Not Available [facility] ([facility]) [address] [facility] [place], [address], 07/24/2024 06:09:47 07/23/20 24 07/24/2024 LIPID PANEL cholesterol, total 174 mg/dL 100-19 9 normal Not Available [facility] ([facility]) [address] [facility] [place], [address], 07/24/2024 06:09:47 07/23/20 24 07/24/2024 LIPID PANEL triglyceride s 60 mg/dL 0-149 normal Not Available [facility] ([facility]) [address] [facility] [place], [address], 07/24/2024 06:09:47 07/23/20 24 07/24/2024 LIPID PANEL HDL cholesterol 75 mg/dL >39 normal Not Available [facility] ([facility]) [address] [facility] [place], [address], 07/24/2024 06:09:47 07/23/20 24 07/24/2024 LIPID PANEL VLDL cholesterol wil 12 mg/dL 5-40 Not Available [facility] ([facility]) [address] [facility] [place], [address], 07/24/2024 06:09:47 07/23/20 24 07/24/2024 LIPID PANEL LDL chol calc ([facility]) 87 mg/dL 0-99 Not Available [facility] ([facility]) [address] [place], [address], 07/24/2024 06:09:47 07/23/20 24 07/24/2024 LIPID PANEL LDL calc comment: 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 The Endoc rine Socie ty went on to furth er defin e vitam in D insuf ficie ncy as a level betwe en 21 and 29 ng/mL (2). 1. IOM (Inst itute of Medic ine). 2010. Dieta ry refer ence intak es for calci um and D. Penny rodriguez [place]: [facility] . 2. Stanislav guan MF, Dulce etienne [place], Lidya off-F michael i BERNARD, et al. Evalu ation , treat ment, and preve ntion of vitam in D defic iency : an Endoc rine Socie ty clini wil pract ice guide line. JCEM. 2010; 96(7) :1911 -30. Not Available [facility] ([facility]) [address] [place], [address], 07/24/2024 06:09:48 09/09/20 24 09/09/2024 COMP. METAB OLIC PANEL (14) glucose 92 mg/dL 70-99 normal Not Available [facility] ([facility]) [address] [place], [address], 09/10/2024 06:08:16 09/09/20 24 09/09/2024 COMP. METAB OLIC PANEL (14) BUN 24 mg/dL 8-27 normal Not Available [facility] ([facility]) [address] [place], [address], 09/10/2024 06:08:16 09/09/20 24 09/09/2024 COMP. METAB OLIC PANEL (14) creatinine 1.13 mg/dL 0.57-1 .00 above high normal Not Available [facility] ([facility]) [address] [place], [address], 09/10/2024 06:08:16 09/09/20 24 09/09/2024 COMP. METAB OLIC PANEL (14) eGFR 52 mL/mi n/1.7 3 >59 below low normal Not Available [facility] ([facility]) [address] [place], [address], 09/10/2024 06:08:16 09/09/20 24 09/09/2024 COMP. METAB OLIC PANEL (14) BUN/creatini ne ratio 21 12-28 normal Not Available [facility] ([facility]) [address] [facility] [place], [address], 09/10/2024 06:08:16 09/09/20 24 09/09/2024 COMP. METAB OLIC PANEL (14) sodium 137 mmol/ L 134-14 4 normal Not Available [facility] ([facility]) [address] [facility] [place], [address], 09/10/2024 06:08:16 09/09/20 24 09/09/2024 COMP. METAB OLIC PANEL (14) potassium 4.4 mmol/ L 3.5-5. 2 normal Not Available [facility] ([facility]) [address] [facility] [place], [address], 09/10/2024 06:08:16 09/09/20 24 09/09/2024 COMP. METAB OLIC PANEL (14) chloride 99 mmol/ L 96-106 normal Not Available [facility] ([facility]) [address] [facility] [place], [address], 09/10/2024 06:08:16 09/09/20 24 09/09/2024 COMP. METAB OLIC PANEL (14) carbon dioxide, total 24 mmol/ L 20-29 normal Not Available [facility] ([facility]) [address] [facility] [place], [address], 09/10/2024 06:08:16 09/09/20 24 09/09/2024 COMP. METAB OLIC PANEL (14) calcium 9.2 mg/dL 8.7-10 .3 normal Not Available [facility] ([facility]) [address] [facility] [place], [address], 09/10/2024 06:08:16 09/09/20 24 09/09/2024 COMP. METAB OLIC PANEL (14) protein, total 7.1 g/dL 6.0-8. 5 normal Not Available [facility] ([facility]) [address] [place], [address], 09/10/2024 06:08:16 09/09/20 24 09/09/2024 COMP. METAB OLIC PANEL (14) albumin 4.3 g/dL 3.8-4. 8 normal Not Available [facility] ([facility]) [address] [place], [address], 09/10/2024 06:08:16 09/09/20 24 09/09/2024 COMP. METAB OLIC PANEL (14) globulin, total 2.8 g/dL 1.5-4. 5 Not Available [facility] ([facility]) [address] [facility] [place], [address], 09/10/2024 06:08:16 09/09/20 24 09/09/2024 COMP. METAB OLIC PANEL (14) bilirubin, total 0.6 mg/dL 0.0-1. 2 normal Not Available [facility] ([facility]) [address] [facility] [place], [address], 09/10/2024 06:08:16 09/09/20 24 09/09/2024 COMP. METAB OLIC PANEL (14) alkaline phosphatase 76 IU/L 44-121 normal Not Available [facility] ([facility]) [address] [facility] [place], [address], 09/10/2024 06:08:16 09/09/20 24 09/09/2024 COMP. METAB OLIC PANEL (14) AST (SGOT) 38 IU/L 0-40 normal Not Available [facility] ([facility]) [address] [facility] [place], [address], 09/10/2024 06:08:16 09/09/20 24 09/09/2024 COMP. METAB OLIC PANEL (14) ALT (SGPT) 26 IU/L 0-32 normal Not Available [facility] ([facility]) [address] [facility] [place], [address], 09/10/2024 06:08:16 09/09/20 24 09/10/2024 URINA LYSIS , COMPL ETE specific gravity 1.008 1.005- 1.030 normal Not Available [facility] ([facility]) [address] [place], [address], 09/10/2024 06:08:17 09/09/20 24 09/10/2024 URINA LYSIS , COMPL ETE pH 7.0 5.0-7. 5 normal Not Available [facility] ([facility]) [address] [place], [address], 09/10/2024 06:08:17 09/09/20 24 09/10/2024 URINA LYSIS , COMPL ETE urine-color Yellow yellow Not Available [facility] ([facility]) [address] [place], [address], 09/10/2024 06:08:17 09/09/20 24 09/10/2024 URINA LYSIS , COMPL ETE appearance Clear clear Not Available [facility] ([facility]) [address] [place], [address], 09/10/2024 06:08:17 09/09/20 24 09/10/2024 URINA LYSIS , COMPL ETE WBC esterase 2+ negati ve abnormal Not Available [facility] ([facility]) [address] [place], [address], 09/10/2024 06:08:17 09/09/20 24 09/10/2024 URINA LYSIS , COMPL ETE protein Negati ve negati ve/tra ce Not Available [facility] ([facility]) [address] [place], [address], 09/10/2024 06:08:17 09/09/20 24 09/10/2024 URINA LYSIS , COMPL ETE glucose Negati ve negati ve Not Available [facility] ([facility]) [address] [place], [address], 09/10/2024 06:08:17 09/09/20 24 09/10/2024 URINA LYSIS , COMPL ETE ketones Negati ve negati ve Not Available [facility] ([facility]) [address] [facility], [place], [address], 09/10/2024 06:08:17 09/09/20 24 09/10/2024 URINA LYSIS , COMPL ETE occult blood Negati ve negati ve Not Available [facility] ([facility]) [address] [facility], [place], [address], 09/10/2024 06:08:17 09/09/20 24 09/10/2024 URINA LYSIS , COMPL ETE bilirubin Negati ve negati ve Not Available [facility] ([facility]) [address] [place], [address], 09/10/2024 06:08:17 09/09/20 24 09/10/2024 URINA LYSIS , COMPL ETE urobilinogen ,semi-qn 0.2 mg/dL 0.2-1. 0 normal Not Available [facility] ([facility]) [address] [facility], [place], [address], 09/10/2024 06:08:17 09/09/20 24 09/10/2024 URINA LYSIS , COMPL ETE nitrite, urine Negati ve negati ve Not Available [facility] ([facility]) [address] [place], [address], 09/10/2024 06:08:17 09/09/20 24 09/10/2024 URINA LYSIS , COMPL ETE microscopic examination See below: Micro scopi c was indic ated and was perfo rmed. Not Available [facility] ([facility]) [address] [place], [address], 09/10/2024 06:08:17 09/09/20 24 09/10/2024 URINA LYSIS , COMPL ETE WBC 0-5 /hpf 0 - 5 Not Available [facility] ([facility]) [address], [place], [address], 09/10/2024 06:08:17 09/09/20 24 09/10/2024 URINA LYSIS , COMPL ETE RBC None seen /hpf 0 - 2 Not Available [facility] ([facility]) [address], [place], [address], 09/10/2024 06:08:17 09/09/20 24 09/10/2024 URINA LYSIS , COMPL ETE epithelial cells (non renal) 0-10 /hpf 0 - 10 Not Available [facility] ([facility]) [address] [facility], [place], [address], 09/10/2024 06:08:17 09/09/20 24 09/10/2024 URINA LYSIS , COMPL ETE epithelial cells (renal) TUNNEL KILN OPERATOR Not Available [facility] ([facility]) [address] [facility], [place], [address], 09/10/2024 06:08:17 09/09/20 24 09/10/2024 URINA LYSIS , COMPL ETE casts None seen /lpf none seen Not Available [facility] ([facility]) [address] [facility], [place], [address], 09/10/2024 06:08:17 09/09/20 24 09/10/2024 URINA LYSIS , COMPL ETE cast type TUNNEL KILN OPERATOR Not Available [facility] ([facility]) [address] [facility], [place], [address], 09/10/2024 06:08:17 09/09/20 24 09/10/2024 URINA LYSIS , COMPL ETE crystals TUNNEL KILN OPERATOR Not Available [facility] ([facility]) [address] [facility], [place], [address], 09/10/2024 06:08:17 09/09/20 24 09/10/2024 URINA LYSIS , COMPL ETE crystal type TUNNEL KILN OPERATOR Not Available [facility] ([facility]) [address] [facility], [place], [address], 09/10/2024 06:08:17 09/09/20 24 09/10/2024 URINA LYSIS , COMPL ETE mucus threads TUNNEL KILN OPERATOR Not Available [facility] ([facility]) [address] [facility], [place], [address], 09/10/2024 06:08:17 09/09/20 24 09/10/2024 URINA LYSIS , COMPL ETE bacteria None seen none seen/f ew Not Available [facility] ([facility]) [address] [facility], [place], [address], 09/10/2024 06:08:17 09/09/20 24 09/10/2024 URINA LYSIS , COMPL ETE yeast TUNNEL KILN OPERATOR Not Available [facility] ([facility]) [address] [facility], [place], [address], 09/10/2024 06:08:17 09/09/20 24 09/10/2024 URINA LYSIS , COMPL ETE trichomonas TUNNEL KILN OPERATOR Not Available [facility] ([facility]) [address] [facility], [place], [address], 09/10/2024 06:08:17 09/09/20 24 09/10/2024 URINA LYSIS , COMPL ETE comment TUNNEL KILN OPERATOR Not Available [facility] ([facility]) [address] [facility], [place], [address], 09/10/2024 06:08:17 09/09/20 24 09/10/2024 URINA LYSIS , COMPL ETE microscopic examination TUNNEL KILN OPERATOR Not Available [facility] ([facility]) [address] [facility], [place], [address], 09/10/2024 06:08:17 02/08/20 22 02/07/2022 XR, chest , 2 view Chest 2 Views Fronta l and Lat Reason : pleuri tic pain COMPAR CORINE: None. FINDIN GS: LINES AND TUBES: None. LUNGS AND PLEURA : The lungs are mildly hyperi nflate d with widene d AP diamet er of the chest. There are bilate ral lower lobe airspa ce opacit ies. No defini te effusi on. No pneumo thorax . HEART, MEDIAS TINUM AND JEWEL: Heart is normal in size. Normal upper medias tinal and hilar contou r. BONES AND SOFT TISSUE S: No acute abnorm ality. Left breast and axilla ry surgic al clips are presen t. IMPRES ARLEY: Bilate ral lower lobe airspa ce opacit ies. Findin gs are suspic ious for bilate ral lower lobe pneumo mayra. Roxana r with the [facility] ed clinic al histor y of pleuri tic chest pain, pulmon delmy emboli with infarc ts are also in the differ ential . These findin gs and recomm endati ons were discus sed with Dr. Natalie estevez at the time of dictat ion on . WSN: [id number] Orderi ng Physic breanne: Onur Rod Dictat ed By: Oren Yanez MD Dictat ed Date/T gilberto: 4:45 pm Review ed By: Oren Yanez MD Signed By: Oren Yanez MD Signed Date/T gilberto: 4:45 pm Transc ribed By: IAM Transc ribed Date/T gilberto: 4:34 pm Patien t Class: Outpat ient [facility] (Outpt Imaging) [address], [place], [address], 02/11/2022 08:33:28 03/07/20 22 03/07/2022 XR, chest , 2 view Chest 2 Views Fronta l and Lat Reason : Radiol ogic infilt rate of lung; other nonspe cific abnorm al findin g of lung field COMPAR CORINE: 022 FINDIN GS: LINES AND TUBES: None. LUNGS AND PLEURA : Interv al cleari ng of the bilate ral areas of patchy airspa ce diseas e at both bases seen in the prior exam. Minima l linear scar or atelec tasis seen near the left base latera lly. No new areas of parenc hymal diseas e. No pleura l effusi on. No pneumo thorax . HEART, MEDIAS TINUM AND JEWEL: Heart is normal in size. Normal upper medias tinal and hilar contou r. BONES AND SOFT TISSUE S: No acute abnorm alitie s. Modera te thorac ic kyphos is. Multip le clips again noted in vicini ty of the left breast and axilla . IMPRES ARLEY: Resolu tion of bilate ral basila r infilt rates with just minima l residu al scar or atelec tasis remain ing in the left. WSN: [id number] Orderi ng Physic breanne: Onur Rod t Class: Outpat ient [facility] (Outpt Imaging) [address] [facility], [place], [address], 07/07/2023 14:50:36 07/25/20 22 07/25/2022 MAMMO , scree axel, digit al, bilat eral PROCED URE: MM Digita l Mammo Screen ing INDICA TION: Screen ing for breast cancer . No known palpab le abnorm alitie s. Person al histor y of left breast malign antonia treate d with conser vation in 2001. COMPAR CORINE: CARLOS dating back to 019. TECHNI QUE: Full-f ield digita l CC and MLO 3D tomosy nthesi s images of both breast s were acquir ed. Comput er-aid ed detect ion (CAD) was utiliz ed in the interp retati on of this study. DENSIT Y: The breast tissue is hetero geneou sly dense, which may obscur e masses . FINDIN GS: No suspic ious masses , suspic ious microc alcifi cation s, or unexpl ained areas of dougie ectura l distor tion are seen in either breast to sugges t malign antonia. Stable distor tion in the architectural manager ior upper outer left breast at surgic al excisi on site. IMPRES ARLEY: Stable bilate ral mammog dylan includ ing post conser vation change s in the left breast . No mammog raphic eviden ce of malign antonia. RECOMM ENDATI ON: Annual mammog raphic screen ing BI-RAD S: 2 (Benig n) Lay letter mailed to leland chowdary WSN: [id number] Orderi ng Physic breanne: Onur Rod Dictat ed By: Joi Philippe MD, I Dictat ed Date/T gilberto: 2:18 pm Review ed By: Joi Philippe MD, I Signed By: Joi Philippe MD, I Signed Date/T gilberto: 2:18 pm Transc ribed By: CSB Transc riptio n Date/T gilberto: 2:14 pm Birads : Leland chowdary Class: Outpat [facility] (Outpt Imaging) [address] [place] [address], [address], 07/07/2023 14:50:36 08/09/20 22 07/25/2022 DEXA, axial skele ton ====== ====== ====== ====== ====== ====== ====== ====== ====== ====== ===== Bone Densit y Report ====== ====== ====== ====== ====== ====== ====== ====== ====== ====== ===== Name: BRIANNA TORRES ID: [id number] Age: 67 Sex: Female Ethnic ity: White Date of : 1954 ------ ------ ------ ------ ------ ------ ------ ------ ------ ------ ----- Indica tion: OSTEOP OROSIS . Referr miri Flowers er: EVANGELISTA ROD AM Study: Bone densit ometry was perfor med. Exam Date: 2021 Access ion number : [id number] Bone Densit y: ------ ------ ------ ------ ------ ------ ------ ------ ------ ------ ----- Region BMD T-scor e Z-scor e Classi ficati on ------ ------ ------ ------ ------ ------ ------ ------ ------ ------ ----- AP Spine (L1-L4 ) 0.986 -0.6 1.5 Normal Femora l Neck (Right ) 0.658 -1.7 0.0 Osteop enia Total Hip (Right ) 0.748 -1.6 -0.1 Osteop enia ------ ------ ------ ------ ------ ------ ------ ------ ------ ------ ----- [employer]i zation criter ia for BMD impres arley classi fy patien ts as: Normal (T-sco re at or above -1.0), Osteop enia (T-sco re betwee n -1.0 and -2.5), or Osteop orosis (T-sco re at or below -2.5). 10-yea r Fractu re Risk: ------ ------ ------ ------ ------ ------ ------ ------ ------ ------ ----- FRAX not report zo saba e: Farhad ordonez for osteop orosis ------ ------ ------ ------ ------ ------ ------ ------ ------ ------ ----- Previo us Exams: ------ ------ ------ ------ ------ ------ ------ ------ ------ ------ ----- Region Exam Age BMD T-scor e BMD Change BMD Change Date g/cm2 vs Baseli ne vs Previo us ------ ------ ------ ------ ------ ------ ------ ------ ------ ------ ----- AP Spine( L1-L4) 2021 67 0.986 -0.6 9.0%* -0.7% 2019 65 0.992 -0.5 9.7%* 9.7%* 2017 62 0.905 -1.3 Total Hip(Ri ght) 2021 67 0.748 -1.6 9.3%* 5.8%* 2019 65 0.707 -1.9 3.3% 3.3% 2017 62 0.684 -2.1 Femora l Neck(R ight) 2021 69 0.658 -1.7 27.2%* 10.0%* 2019 67 0.599 -2.3 15.7%* 15.7%* 2017 64 0.518 -3.0 ------ ------ ------ ------ ------ ------ ------ ------ ------ ------ ----- *Kell marshall signif icance at 95% confid ence level, LSC for AP Spine = 0.022 g/cm2, LSC for Total Hip = 0.027 g/cm2 Clinic al Inform ation Provid ed by Leland chowdary: ------ ------ ------ ------ ------ ------ ------ ------ ------ ------ ----- Is being treate d for osteop orosis Has used the follow ing medica tions: Fosama x (i.e. alendr abrbara) , Vitami n D, Resara hassan Has the follow ing medica l condit ions: Cancer Leland hassan height was 66.25 Menopa use Age: 48 Onset of menses at age 9 Number of childr en 4 ------ ------ ------ ------ ------ ------ ------ ------ ------ ------ ----- Impres arley: The leland chowdary has osteop enia as determ ined by WHO criter ia. Based on the result s of the leland chowdary's bone densit y assess ment, the risk of future fractu re increa ses approx imatel y two fold for each 1.0 SD decrea se in T-scor eKarson Schmidt r, low BMD is not the only risk factor for a future fragil ity fractu re. Other clinic al risk factor s for osteop orotic fractu re should be consid ered in ascert aining this leland t's future fractu re risk includ ing the patien t's age, previo us osteop orotic (fragi lity) fractu re, estrog en defici ency/h ypogon adism, risk of fallin g, use of medica tions implic ated in bone loss (gluco cortic oids), family histor y of osteop orotic fractu re, diseas es and condit ions associ ated with bone loss, low body weight , smokin g, high bone turnov er, etc. Combin ing low BMD and other clinic al risk factor s result in a more precis e assess ment of future fractu re risk. Second delmy causes for osteop orosis , such as osteom alacia , other metabo lic bone disord ers, and diseas es and condit ions that may contri bute to accele rated bone loss may have to be consid ered depend ing on the clinic al situat ion. A repeat bone densit y assess ment should be consid ered in two years. Report ed by: Tammy Mathis ra, M.D. on 2021 1:05:0 0 PM. Dictat ed By: Tammy Mathis ra, MD Dictat ed Date/T gilberto: 1:05 pm Review ed By: Tammy Mathis ra, MD Signed By: Tammy Mathis ra, MD Signed Date/T gilberto: 1:05 pm Transc ribed By: KYLEB Transc ribed Date/T gilberto: 1:05 pm Patien t Class: Outpat ient [facility] (Outpt Imaging) [address] , [place], [address], 07/07/2023 14:50:36 08/10/20 22 07/25/2022 bone densi ty No observ ation record ed. [facility] [address], [place], [address], 07/07/2023 14:50:36 07/28/20 23 07/28/2023 MAMMO arlene, bilat eral No observ ation record ed. [facility]ly [facility] ([facility]) [address], [place], [address], 07/09/2024 11:12:44 07/30/20 24 07/30/2024 MAMMO arlene, bilat eral No observ ation record ed. [email or web address] [facility] [address], [place], [address], 07/30/2024 09:41:22 07/30/20 24 07/30/2024 MAMMO , scree axel, digit al, bilat eral PROCED URE: MM Digita l Mammo Screen ing INDICA TION: Screen ing for breast cancer . No known palpab le abnorm alitie s. 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 COMPAR CORINE: Prior mammog cecelia most recent ly dated 023. TECHNI QUE: Full-f ield digita l CC and MLO 3D tomosy nthesi s images of both breast s were acquir ed. Comput er-aid ed detect ion (CAD) was utiliz ed in the interp retati on of this study. DENSIT Y: The breast tissue is hetero geneou sly dense, which may obscur e small masses . FINDIN GS: Only seen on the cranio caudal view is a 4 mm asymme try in the medial architectural manager ior left breast . Furthe r evalua tion with spot compre ssion, medial ly exagge rated cranio caudal and mediol ateral views is recomm ended. Additi onal target ed ultras ound scan may be requir ed. No suspic ious findin gs are seen in the right breast . IMPRES ARLEY: Additi onal imagin g recomm ended. We will recall the leland chowdary. RECOMM ENDATI ON: Diagno stic 3D tomosy nthesi s of the left breast with schedu led ultras ound BI-RAD S: 0 Incomp lete - Need Additi onal Imagin g Evalua tion. Lay letter mailed to leland epi WSN: [id number] Orderi ng Physic breanne: Onur Rod Dictat ed By: Shelley Joseph MD Dictat ed Date/T gilberto: 9:32 am Review ed By: Shelley Joseph MD Signed By: Shelley Joseph MD Signed Date/T gilberto: 9:32 am Transc ribed By: CSB Transc riptio n Date/T gilberto: 9:27 am Birads : Leland chowdary Class: Outpat ient [email or web address] [facility] (Outpt Imaging) [address], [place], [address], 07/30/2024 09:41:13 08/12/20 24 08/12/2024 US, eli chowdary, unila teral , limit ed No observ ation record ed. [email or web address] [facility] [address], [place], [address], 08/12/2024 15:20:45 08/12/20 24 08/12/2024 US, eli chowdary, limit ed PROCED URE: MM Digita l Mammo Unilat Left, US Breast Left Limite d INDICA TION: Callba ck for single view asymme try seen in the left breast on screen ing mammog dylan. COMPAR CORINE: Priors , most recent dated 024 TECHNI QUE: Digita l diagno stic mammog dylan consis ting of spot CC tomogr aphic compre ssion images , medial exagge rated left cc view and full field 3D true latera l view of the left breast were obtain ed. In additi on, target ed high-r esolut ion ultras ound of left breast , 8-10 o'cloc k, 14 cm from the nipple was obtain ed. DENSIT Y: There are scatte red areas of fibrog landul ar densit y. FINDIN GS: There is comple te efface ment of the previo usly noted 3 mm single view asymme try in the medial architectural manager ior left breast , with stable breast parenc hymal patter n, compar ed to prior studie s. Redemo nstrat ed is postsu rgical scarri ng in the latera l architectural manager ior left breast . Sonogr aphic evalua tion of the medial architectural manager ior left breast , 8-10 o'cloc k, 4 to 10 cm from the nipple demons trates no sonogr aphic abnorm ality. IMPRES ARLEY: No persis tent mammog raphic or sonogr aphic abnorm ality in the medial architectural manager ior left breast RECOMM ENDATI ON: Routin e mammog raphic screen ing BI-RAD S: 2 (Benig n) Lay letter mailed to leland chowdary WSN: [id number] Orderi ng Physic breanne: Onur Rod Dictat ed By: Alexsandra Cortez MD Dictat ed Date/T gilberto: 2:37 pm Review ed By: Alexsandra Cortez MD Signed By: Alexsandra Cortez MD Signed Date/T gilberto: 2:37 pm Transc ribed By: IAM Transc ribed Date/T gilberto: 2:34 pm Patien t Class: Outpat ient awychowski [facility] (Outpt Imaging) [address], [place], [address], 08/15/2024 14:49:05 08/12/20 24 08/12/2024 mm digit al mammo unila t left PROCED URE: MM Digita l Mammo Unilat Left, US Breast Left Limite d INDICA TION: Callba ck for single view asymme try seen in the left breast on screen ing mammog dylan. COMPAR CORINE: Priors , most recent dated 024 TECHNI QUE: Digita l diagno stic mammog dylan consis ting of spot CC tomogr aphic compre ssion images , medial exagge rated left cc view and full field 3D true latera l view of the left breast were obtain ed. In additi on, target ed high-r esolut ion ultras ound of left breast , 8-10 o'cloc k, 14 cm from the nipple was obtain ed. DENSIT Y: There are scatte red areas of fibrog landul ar densit y. FINDIN GS: There is comple te efface ment of the previo usly noted 3 mm single view asymme try in the medial architectural manager ior left breast , with stable breast parenc hymal patter n, compar ed to prior studie s. Redemo nstrat ed is postsu rgical scarri ng in the latera l architectural manager ior left breast . Sonogr aphic evalua tion of the medial architectural manager ior left breast , 8-10 o'cloc k, 4 to 10 cm from the nipple demons trates no sonogr aphic abnorm ality. IMPRES ARLEY: No persis tent mammog raphic or sonogr aphic abnorm ality in the medial architectural manager ior left breast RECOMM ENDATI ON: Routin e mammog raphic screen ing BI-RAD S: 2 (Benig n) Lay letter mailed to leland chowdary WSN: [id number] Orderbernardino spears Physic breanne: Onur Rod Dictat ed By: Alexsandra Cortez MD Dictat ed Date/T gilberto: 2:37 pm Review ed By: Alexsandra Cortez MD Signed By: Alexsandra Cortez MD Signed Date/T gilberto: 2:37 pm Transc ribed By: CSB Transc riptio n Date/T gilberto: 2:34 pm Birads : Leland chowdary Class: Outpat ient [facility] (Outpt Imaging) [address] [place] [address], [address], 08/20/2024 11:23:17 11/15/19 25 11/15/2024 US, retro perit oneum , compl ete US Renal Bladde r Reason : Elevat ed creati nine; Clinic al Questi on(s): Medica l renal diseas e. COMPAR CORINE: None. FINDIN GS: Right kidney : 9.5 cm in length . No hydron ephros is. Normal parenc hymal thickn ess and echote xture. No stones . No suspic ious mass. Left kidney : 10.0 cm in length . No hydron ephros is. Normal parenc hymal thickn ess and echote xture. No stones . No suspic ious mass. Urinar y bladde r: Incomp letely disten ded, but no eviden ce of stone, mass or debris . IMPRES ARLEY: Normal kidney s and underd istend ed bladde r. WSN: [id number] Orderbernardino spears Physic beranne: Onur Rod Dictat ed By: Bishnu Post MD Dictat ed Date/T gilberto: 12:06 p Review ed By: Bishnu Post MD Signed By: Bishnu Post MD Signed Date/T gilberto: 12:06 pm Transc ribed By: CSB Transc ribed Date/T gilberto: 11:54 am Patimissy t Class: Outpat ient [facility] (Outpt Imaging) [address] , [place], [address], 11/18/2024 10:46:24 11/19/19 25 11/15/2024 DEXA, axial skele ton Name:Mary Jo Ha t ID: [id number] Age:69 years Sex:Fe male Ethnic ity:Wh ite Date of : [birth year] Reason : M85.89 ; Clinic al Questi on(s): Other: Referr ing Provid er:Linda estevez MD Study: Dexa Bone Densit y (Axial ) Bone Densit y: Region BMD T-Scor e Z-Scor e Classi ficati on AP Spine 0.979 -0.6 1.6 Normal TOTAL HIP 0.709 -1.9 -0.3 Osteop enia FEM NECK 0.548 -2.7 -0.8 Osteop orosis 10-yea r Fractu re Risk: Fractu re Risk Not Report ed: FRAX not report ed becaus e: Some T-scor e for Spine Total or Hip Total or Femora l Neck at or below -2.5 RATE OF CHANGE (SPINE ): BMD values have decrea sed0.7 % from previo us BMD values have increa sed 8.2% from baseli ne RATE OF CHANGE (TOTAL HIP): BMD values have increa sed 0.3% from previo us BMD values have increa sed 3.7% from baseli ne RATE OF CHANGE (FEMOR AL NECK): BMD values have decrea sed 8.5% from previo us BMD values have increa sed 5.8% from baseli ne Impres arley: The patien t has osteop orosis as determ ined by WHO criter ia. WSN: [id number] Orderi ng Physic breanne: Onur Rod ed By: Bailey Palacios MD ed Date/T gilberto: 1:04 pm Review ed By: Bailey Palacios MD Signed By: Bailey Palacios MD Signed Date/T gilberto: 1:04 pm Transc ribed By: IAM Transc ribed Date/T gilberto: 1:02 pm Patien t Class: Outpat ient [facility] (Outpt Imaging) [address] [facility], [place], [address], 11/22/2024 17:52:31 Result Notes None recorded. 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 Active 2001 left, s/p lumpecto my, radiatio n and tamoxife n Not Available [facility] 3 10:10:29 Osteopen ia 616687331 Completed 201612/06/2017 Onur Dela Cruz MD [address], [place], [address] , [facility] 2 20:20:22 Multiple nodules of lung 873801315 Active 2016 Not Available [facility] 3 10:10:29 Obstruct brionna sleep apnea syndrome 27417572 Active 2016 Not Available [facility] 3 10:10:29 Disorder of nasal septum 78510855 Completed 201610/29/2018 Onur Dela Cruz MD [address], [place], [address] , [facility] 9 08:58:29 History of pneumoni a 537487880 Active 2016 Not Available [facility] 3 10:10:29 Generali zed anxiety disorder 44270786 Completed 201611/01/2019 Onur Dela Cruz MD [address], [place], [address] , [facility] 0 09:05:07 Basal cell carcinom a of skin 441816823 Active 2016 Not Available [facility] 3 10:10:29 Hypercho lesterol emia 12763843 Active 2016 Not Available [facility] 3 10:10:29 Osteopor osis 19134107 Completed 201510/22/2017 Onur Dela Cruz MD [address], [place], [address] , [facility] 5 06:21:20 Acquired bronchie ctasis 214182596 Active 2016 Not Available [facility] 3 10:10:29 Bronchie ctasis 02900315 Completed 201610/29/2018 Onur Dela Cruz MD [address] [facility] [address], [place], [address] , [facility] 1 11:44:07 Generali zed lentigin osis Active 2017 Not Available [facility] 3 10:10:29 Hallux valgus 170682855 Active 2017 Not Available [facility] 3 10:10:29 Fibrosis of lung 71867979 Active 2017 Not Available [facility] 3 10:10:29 Parkinso n's disease 24835150 Active 2017 Not Available [facility] 3 10:10:29 Deviated nasal septum 852784004 Active 2017 Not Available [facility] 3 10:10:29 History of basal cell carcinom a of eyelid 19770608696 107 Active 2018 Not Available [facility] 3 10:10:29 Bronchie ctasis 87320317 Completed 201811/10/2020 Onur Dela Cruz MD [address], [place], [address] , [facility] 1 11:44:07 Mammogra phy abnormal 187457408 Completed 201811/10/2020 Onur Dela Cruz MD [address] [facility] [address], [place], [address] , [facility] 1 11:44:51 History of anxiety state 054349245 Active 2019 Not Available [facility] 3 10:10:29 Liver enzymes level above referenc e range 042748465 Completed 201907/25/2023 Onur Dela Cruz MD [address], [place], [address] , [facility] 3 11:10:15 Alopecia 16668187 Active 2019 Not Available [facility] 3 10:10:29 Adult bronchie ctasis 63441731 Active 2021 Not Available [facility] 3 10:10:29 Family history of coronary arterios clerosis 429315649 Active 2021 Not Available [facility] 3 10:10:29 History of SARS-CoV -2 54913105797 7853829 Completed 202112/18/2021 Nelly Gallardo [place] [facility], [facility] 2 10:10:29 Pleuriti c pain 8073531 Active 2021 Not Available [facility] 3 10:10:29 Osteopen ia 422038549 Active 2016 Not Available [facility] 3 10:10:29 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 58698767 Active 2022 Not Available [facility] 3 10:10:29 Recurren t pneumoni a 942841429 Active 2022 Not Available [facility] 3 10:10:29 Seborrhe ic dermatit is 86821340 Active 2022 Not Available [facility] 3 10:10:29 Serum creatini ne above referenc e range 642804197 Active 2023 Onur Dela Cruz MD [address], [place], [address] , [facility] 4 13:51:10 Scattere mery fibrogla ndular densitie s 948394671 Active 2023 Onur Dela Cruz MD [address] [facility] [address], [place], [address] , [facility] 4 14:47:44 Chronic kidney disease stage 3A 392564530 Active 2023 Onur Dela Cruz MD [address] [facility] [address], [place], [address] , [facility] 4 16:34:45 Osteopor osis 45588444 Active 2015 Onur Dela Cruz MD [address] [facility] [address], [place], [address] , [facility] 5 06:21:20 Problem Notes None recorded. Procedures Surgical History Date Name Laterality Status Provider Name and Address Organization Details Recorded Time 08/12/20 24 Ultrasound breast limited completed Eleanor Yoo [facility] 08/12/2024 15:21:10 07/30/20 24 Most Recent Mammogram completed Rosalia Sesay [facility] 07/30/2024 09:41:11 07/07/20 23 Advanced Care Planning completed Onur Dela Cruz MD [address] [facility] [address], [place], [address], [facility] 07/07/2023 14:44:56 07/25/20 22 Most Recent Bone Density completed Nelly Gallardo MA [facility] 07/07/2023 13:46:55 07/25/20 22 Mammogram both breasts completed Nelly Gallardo MA [facility] 07/07/2023 13:45:50 07/25/20 22 Dxa bone density elena vrt fx completed Nelly Gallardo MA [facility] 07/07/2023 13:46:45 09/27/19 22 Date of Last Colonoscopy completed Eleanor Yoo [facility] 11/01/2021 14:43:38 09/27/19 22 Colonoscopy completed Eleanor Yoo [facility] 11/01/2021 14:43:24 11/10/19 21 Six-Item Cognitive Test completed Mari Segura MA [facility] 11/10/2020 11:02:21 07/06/20 20 Dxa bone density elena vrt fx completed Mari Segura MA [facility] 11/10/2020 11:00:18 11/01/19 20 Mini-Cog Test completed Mari Segura MA [facility] 11/01/2019 08:47:18 10/29/19 19 Mini-Cog Test completed Monica Perdue MA [facility] 10/29/2018 08:30:22 07/16/20 17 Date of Last Pap Smear completed Danielle Trevizo [facility] 07/29/2017 10:24:59 09/22/19 09 Partial removal of colon completed Onur Dela Cruz MD [address], [address], [facility] 10/29/2018 09:01:33 Breast Surgery completed Onur Dela Cruz MD [address], [address], [facility] 10/03/2016 09:15:02 ligation of bilateral fallopian tubes completed Onur Dela Cruz MD [address], [address], [facility] 10/29/2018 09:01:43 Tubal Ligation completed Nelly Gallardo [facility] 07/07/2023 13:42:33 Imaging Results Imaging Date Name Status LastModified by Organiz ation Details LastModified Time 02/07/2022 XR, chest, 2 view completed [facility] (Outpt Imaging) [address] [place], [address], 02/11/2022 08:33:28 03/07/2022 XR, chest, 2 view completed [facility] (Outpt Imaging) [address] [place], [address], 07/07/2023 14:50:36 07/25/2022 MAMMO, screening, digital, bilateral completed [facility] (Outpt Imaging) [address] [facility], [place], [address], 07/07/2023 14:50:36 07/25/2022 DEXA, axial skeleton completed [facility] (Outpt Imaging) [address] [place], [address], 07/07/2023 14:50:36 07/25/2022 bone density completed [facility] [address], [place], [address], 07/07/2023 14:50:36 07/28/2023 MAMMO, screening, bilateral completed [facility] ([facility]) [address], [place], [address], 07/09/2024 11:12:44 07/30/2024 MAMMO, screening, bilateral completed [address] Imaging [address], [place], [address], 07/30/2024 09:41:22 07/30/2024 MAMMO, screening, digital, bilateral completed [address] (Outpt Imaging) [address] [place], [address], 07/30/2024 09:41:13 08/12/2024 US, breast, unilateral, limited completed [address] [facility] [address], [place], [address], 08/12/2024 15:20:45 08/12/2024 US, breast, limited completed [facility] (Outpt Imaging) [address] [place], [address], 08/15/2024 14:49:05 08/12/2024 mm digital mammo unilat left completed [facility] (Outpt Imaging) [address] , [place], [address], 08/20/2024 11:23:17 11/15/2024 US, retroperitone um, complete completed [facility] (Outpt Imaging) [address] , [place], [address], 11/18/2024 10:46:24 11/15/2024 DEXA, axial skeleton completed [facility] (Outpt Imaging) [address] , [place], [address], 11/22/2024 17:52:31 Procedure Notes None recorded. Medical Equipment None Reported. Allergies No known drug allergies Medications Name Sig Start Date Stop Date Status Note LastModified by Organization Details LastModified Time atorvasta tin 10 mg tablet TAKE 1 TABLET BY MOUTH EVERY DAY 2024 active Not Available Not Available Not Avai lable azithromy damien 250 mg tablet TAKE 2 TABLETS (500 MG) BY ORAL ROUTE ONCE DAILY FOR 1 DAY THEN 1 TABLET (250 MG) BY ORAL ROUTE ONCE DAILY FOR 4 DAYS 12/09 completed Not Available Not Available Not Available benzonata te 200 mg capsule 10/22 completed Not Available Not Available Not Available alendrona te 70 mg tablet Take 1 tablet by oral route for 84 days. 07/07 completed Not Available Not Available Not Available ciproflox acin 500 mg tablet Take 1 tablet every day by oral route for 1 day. 10/22 completed Not Available Not Available Not Available TobraDex 0.3 %-0.1 % eye ointment Apply 1 applicat ion as needed by ophthalm ic route for 10 days. 08/31 completed Not Available Not Available Not Available bupropion HCl SR 100 mg tablet,12 hr sustained -release Take 1 tablet every other day by oral route for 30 days. 10/22 completed Not Available Not Available Not Available Posture-D 600 mg-125 unit tablet Take 1 tablet every day by oral route. 07/07 completed Not Available Not Available Not Available magnesium oxide 400 mg (241.3 mg magnesium ) tablet Take 1 tablet every day by oral route for 90 days. 12/18 completed Not Available Not Available Not Available Dequincy 0.02 % topical cream APPLY A THIN LAYER TO THE AFFECTED AREA(S) BY TOPICAL ROUTE ONCE DAILY BEFORE BEDTIME 04/07 completed Not Available Not Available Not Available oseltamiv ir 75 mg capsule TAKE 1 CAPSULE BY MOUTH TWICE A DAY FOR 5 DAYS 02/08 completed Not Available Not Available Not Available flurbipro fen 100 mg tablet 11/01 completed Not Available Not Available Not Available mupirocin 2 % topical ointment APPLY TO AREA ON THE BREAST TWICE A DAY UNTIL HEALED. 11/10 completed Not Available Not Available Not Available levofloxa damien 500 mg tablet 11/01 completed Not Available Not Available Not Available albuterol sulfate HFA 90 mcg/actua tion aerosol inhaler Inhale 1 puff twice a day by inhalati on route for 25 days. 07/04 completed Not Available Not Available Not Available ipratropi um bromide 42 mcg (0.06 %) nasal spray 2 SPRAY INTRANAS ALLY 3 TIMES A DAY NEEDED FOR ALLERGY SYMPTOMS ADMINIST ER INTO EACH NOSTRIL 07/09 completed Not Available Not Available Not Available carbidopa 25 mg-levodo pa 100 mg tablet TAKE 1 TABLET BY MOUTH 2 TIMES A DAY FOR 90 DAYS active Not Available Not Available No t Available fluticaso ne propionat e 50 mcg/actua tion nasal spray,je pension 08/31 completed Not Available Not Available Not Available amoxicill in 875 mg-potass ium clavulana te 125 mg tablet Take 1 tablet every 12 hours by oral route for 10 days. 07/04 completed Not Available Not Available Not Available tobramyci n 0.3 %-dexamet hasone 0.1 % eye drops,je pension PLACE 1 DROP INTO BOTH EYES ONCE A DAY NEEDED. active Not Available Not Available No t Available Gas-X active Not Available Not Availa ble Not Available Calcium Citrate + D active Unsure of strength Not Available Not Available Not Available Multivita min 50 Plus 1 tab daily active Not Available Not Available No t Available Probiotic 1 tab daily active Not Available Not Available No t Available biotin 1 mg capsule Take 1 capsule every day by oral route. 04/07 completed Not Available Not Available Not Available Aerospan 80 mcg/actua tion HFA aerosol inhaler Inhale 2 puffs twice a day by inhalati on route. 10/22 completed Not Available Not Available Not Available Super B Maxi Complex 1 tab daily by mouth active Not Available Not Available No t Available bupropion HCl 150 mg tablet,12 hr sustained -release( smoking deterrent ) Take 1 tablet every day by oral route. 10/03 completed Not Available Not Available Not Available Clenpiq 10 mg-3.5 gram-12 gram/160 mL oral solution Take by oral route for 1 day. 11/19 completed Not Available Not Available Not Available Fluzone High-Dose 2019-20 (PF) 180 mcg/0.5 mL intramusc ular syringe ADM 0.5ML IM UTD 04/07 completed Not Available Not Available Not Available COVID-19 test specimen collectio n TEST DIRECTED TODAY 11/19 completed Not Available Not Available Not Available Paxlovid 300 mg (150 mg x 2)-100 mg tablets in a dose pack TAKE 2 NIRMATRE LVIR TABLETS AND 1 RITONAVI R TABLET TOGETHER BY MOUTH TWICE DAILY FOR 5 DAYS 02/01 completed Not Available Not Available Not Available Vitals Date Recorded Body height Provider Name an d Address Organization Details Last Updated DateTime 02/01/2022 163.2 cm Mari Segura MA [facility] 02/01/2022 14:20:08 Date Recorded Body height Provider Name an d Address Organization Details Last Updated DateTime 02/08/2022 163.2 cm Mari Segura MA [facility] 02/08/2022 09:52:33 Date Recorded Body weight Heart rate Oxygen saturation Oxygen saturation in Arterial blood by Pulse oximetry Body temperature Body mass index (BMI) Body height Systolic blood pressure Diastolic blood pressure Provider Name and Address Organization Details Last Updated DateTime 3 61410.5 5 g 61 /min 95 % 95 % 98.2 [degF] 21.3 kg/m2 162.56 cm 131 mm[Hg] 78 mm[Hg] Nelly Gallardo [facility] 3 13:48:59 Date Recorded Body height Provider Name an d Address Organization Details Last Updated DateTime 07/25/2023 162.56 cm Madhuri Booth LPN [facility] 07/25/2023 10:41:43 Date Recorded Body height Body mass index (BMI) Body weight Heart rate Oxygen saturation Oxygen saturation in Arterial blood by Pulse oximetry Body temperature Systolic blood pressure Diastolic blood pressure Provider Name and Address Organization Details Last Updated DateTime 4 162.56 cm 22 kg/m2 87542.8 2 g 78 /min 99 % 99 % 97.5 [degF] 105 mm[Hg] 69 mm[Hg] Efrain ewing MA [facility] 4 10:21:29 Social History Question Answer Notes LastModified by Organizat ion Details LastModified Time Tobacco Smoking Status Never Smoker KHANH Stephenson, [facility] 10/03/2016 08:31:23 Do You Have An Advance Directive? Yes HCP/ -Harvinder price Information not available 07/07/2023 What Is Your Level Of Alcohol Consumption? None Information not available 10/03/2016 Is Blood Transfusion Acceptable In An Emergency? Yes Information not available 10/03/2016 What Is Your Level Of Caffeine Consumption? None dee Information not available 07/07/2023 How Much Tobacco Do You Chew? None Information not available 11/01/2019 Are You Currently Employed? No Information not available 11/10/2020 What Type Of Diet Are You Following? REGULAR Information not available 10/03/2016 Which Illicit Or Recreational Drugs Have You Used? None Information not available 10/03/2016 Do You Or Have You Ever Used E-cigarettes Or Vape? Never Used Electronic Cigarettes dee Information not available 07/07/2023 What Is Your Occupation? Retired dee Information not available 07/07/2023 Live Alone Or With Others? With Others dee Information not available 07/07/2023 Do You Take Precautions To Prevent Distracted Driving? Yes Information not available 10/03/2016 How Often Do You Need To Have Someone Help You When You Read Instructions, Pamphlets, Or Other Written Material From Your Doctor Or Pharmacy? Never Information not available 10/03/2016 Have You Served In The ? No Information not available 10/03/2016 Have You Or Anyone In Your Household Had Any Of The Following Symptoms In The Last 14 Days: Sore Throat, Cough, Chills, Body Aches For Unknown Reasons, Shortness Of Breath For Unknown Reasons, Loss Of Smell, Loss Of Taste, Fever At Or Greater Than 100 Degrees Fahrenheit? No Information not available 04/07/2020 Are You Or Anyone In Your Household A Health Care Provider Or Emergency Responder? No Information not available 04/07/2020 To The Best Of Your Knowledge Have You Been In Close Proximity To Any Individual Who Tested Positive For COVID-19? No Information not available 04/07/2020 *AWV ONLY* Are You Presently Prescribed Opioid Medication By PCP Or Specialist? If YES -Provider Assess The Benefit For Other, Non-opioid Pain Therapies Instead, Even If The Patient Does Not Have OUD But Is Possibly At Risk. No Information not available 11/10/2020 Have You Recently Traveled To A COVID-19 High Risk Area Or Gathering In The Last 10 Days? No Information not available 11/10/2020 What Was The Date Of Your Most Recent Tobacco Screening? 07/09/2024 [email or web address] Information not available 07/09/2024 How Many Children Do You Have? 4 2 Sons 2 Dtrs, 6 Grandchildren Information not available 07/09/2024 Do You Use Protection During Sex? No Information not available 11/10/2020 Do You Use Your Seat Belt Or Car Seat Routinely? Yes Information not available 07/07/2023 Seat Belts Used Routinely Yes Information not available 07/07/2023 Are You Sexually Active? Yes Information not available 10/03/2016 Smoke Alarm In Home Yes Information not available 07/07/2023 Do You Have Smoke And Carbon Monoxide Detectors In Your Home? Yes Information not available 07/07/2023 At What Age Did You Start Smoking Tobacco? 0 Information not available 11/01/2019 Are You Passively Exposed To Smoke? No Information not available 10/03/2016 Do You Or Have You Ever Used Smokeless Tobacco? Never Used Smokeless Tobacco Information not available 11/01/2019 How Much Tobacco Do You Smoke? No Information not available 11/01/2019 Do You Use Any Illicit Or Recreational Drugs? No Information not available 07/07/2023 Do You Use Sunscreen Routinely? Yes Information not available 10/03/2016 How Many Years Have You Smoked Tobacco? 0 Information not available 11/01/2019 Do You Or Have You Ever Used Any Other Forms Of Tobacco Or Nicotine? No Information not available 07/07/2023 Sex: Unknown Functional Status Question Answer Note LastModified by Organization D etails LastModified Time Are you able to walk? YESWOREST Information not available 07/07/2023 Are you able to care for yourself? Yes Information not available 10/03/2016 What is your exercise level? Moderate Information not available 10/22/2017 Mental Status None recorded. Family History Relationship Description Onset Age of this Age Resolved Age Notes LastModified by Organization Details LastModified Time Father Malignant tumor of colon 50 [email or web address] Not available 2020 10:56:23 Father Alzheimer's disease [email or web address] Not available 2016 08:30:01 Father Coronary arterioscler osis 77 [email or web address] Not available 2022 13:26:16 Mother Heart disease 97 [email or web address] Not available 07/07 14:29:51 Brother Heart disease s/p CABG [email or web address] Not available 10/03/2016 09:16:27 Sister Malignant tumor of breast [email or web address] Not available 10/03 09:17:01 Daughter Anxiety disorder [email or web address] Not available 10/22 11:35:45 Unspecified Relation Malignant tumor of cervix [email or web address] Not available 2022 13:26:16 Medical History Condition Response Gout N Other N Blood Diseases N Kidney Stones N Hyperthyroidism N Breast Cancer Y Depression N COPD N Lung Disease N Hypothyroidism N Defects or Inherited Disease N Anesthesia Complications N Headaches/Migraines N Anxiety Disorder N Varicose Veins N Obesity N Vision or Eye Problems N Arthritis N Head Injury/Concussion N Polyps N Infertility N Congenital Anomalies N Acid Reflux (GERD) N Cancer N Stroke N ADHD N Endometriosis N High Cholesterol Y Liver Disease N Fibromyalgia N Kidney Disease N Heart Problems N Ear or Hearing Problems N Hospitalizations N Thyroid Problems N GI Problems N Acne N Eating Disorder N Skin Problems N Anemia N Constipation N Bladder Problems N Mental Illness N Ovarian Cancer N Diabetes N Blood Transfusions N Seizures/Epilepsy N Tuberculosis N AIDS/HIV N Congestive Heart Failure (CHF) N Eczema N Diverticulitis N Abuse/Domestic Violence N Asthma N Allergies N Reflux/GERD N Hepatitis N Pulmonary Embolism N Hypertension N Chicken Pox N Autism Spectrum Disorder (ASD) N Osteoporosis N Gynecological History Statement/Question Response Date of Last Pap Smear 07/16/2017 Date of Last Colonoscopy 09/27/2021 Most Recent Mammogram 07/30/2024 Most Recent Bone Density 07/25/2022 Obstetrics History GPAL:G 0 P 0 0 0 0 Immunizations Vaccine Type Date Status Note Provider Nam e and Address Organization Details Recorded Time Influenza, split virus, quadrivalent, preservative 6 completed Eleanor Yoo null, [facility] 09/01/2023 10:09:24 zoster live 4 completed Eleanor Yoo null, [facility] 09/01/2023 10:09:24 Influenza, split virus, quadrivalent, preservative 7 completed Eleanor Yoo null, [facility] 09/01/2023 10:09:24 Influenza, high-dose, trivalent, PF 8 completed Eleanor Yoo null, [facility] 09/01/2023 10:09:24 Influenza, high-dose, trivalent, PF 9 completed Eleanor Yoo null, [facility] 09/01/2023 10:09:24 Influenza, split virus, quadrivalent, preservative 0 completed Eleanor Yoo null, [facility] 09/01/2023 10:09:24 COVID-19, mRNA, LNP-S, PF, 30 mcg/0.3 mL dose 1 completed Eleanor Yoo null [facility] 09/01/2023 10:09:24 Influenza, adjuvanted, quadrivalent, PF 1 completed Eleanor Yoo null, [facility] 09/01/2023 10:09:24 Influenza, adjuvanted, quadrivalent, PF 0 completed Eleanor Yoo null, [facility] 09/01/2023 10:09:24 COVID-19, mRNA, LNP-S, PF, 30 mcg/0.3 mL dose 1 completed Eleanor Yoo null, [facility] 09/01/2023 10:09:24 Influenza, split virus, quadrivalent, PF 6 completed Eleanor Yoo null, [facility] 09/01/2023 10:09:25 Influenza, split virus, trivalent, preservative 3 completed Eleanor Yoo null, [facility] 09/01/2023 10:09:24 Influenza, split virus, trivalent, preservative 7 completed Eleanor Yoo null, [facility] 09/01/2023 10:09:25 COVID-19, mRNA, LNP-S, PF, 30 mcg/0.3 mL dose 1 completed Eleanor Yoo null, [facility] 09/01/2023 10:09:24 Influenza, split virus, trivalent, preservative 4 completed Eleanor Yoo null, [facility] 09/01/2023 10:09:24 Influenza, high-dose, trivalent, PF 8 completed Eleanor Yoo null, [facility] 09/01/2023 10:09:24 Influenza, high-dose, quadrivalent, PF 2 completed Eleanor Yoo null, [facility] 09/01/2023 10:09:24 COVID-19, mRNA, LNP-S, bivalent, PF, 30 mcg/0.3 mL dose 2 completed Eleanor Yoo null, [facility] 09/01/2023 10:09:24 Influenza, adjuvanted, quadrivalent, PF 3 completed Eleanor lambert [facility] 09/01/2023 10:09:24 COVID-19, mRNA, LNP-S, PF, brown-sucrose, 30 mcg/0.3 mL 3 completed KHANH Aly, [facility] 07/09/2024 10:17:05 Tdap 7 completed Not Available [facility] 10/09/2019 02:21:45 pneumococcal polysaccharide PPV23 7 completed Not Available [facility] 10/09/2019 02:21:26 Pneumococcal conjugate PCV 13 8 completed Not Available [facility] 10/09/2019 02:21:38 pneumococcal polysaccharide PPV23 2 completed KHANH Stephenson, [facility] 11/19/2021 13:12:31 Influenza, high-dose, trivalent, PF 4 completed Onur Dela Cruz MD [address], [address], [facility] 07/09/2024 11:11:29 Past Encounters Encounter ID Performer Location Encounter Start Date Encounter Closed Date Diagnosis/Indication Diagnosis SNOMED-CT Code Diagnosis ICD10 Code Diagnosis Note [id number] Onur Dela Cruz MD Main Office [address] [address] 10/03/2016 08:14:07 10/03/2016 09:43:56 Adult health examination 794090650 Z00.00 Immunizati on status updated. Will screen based on risk factors. Pt reports PAP and colonosocp y are utd. Will request prior records. Regular dental and ophtho care advised as well as seat belt and sunscreen use. Distracted driving discussed. Advance directives in place. Administra tion of diphtheria, pertussis, and tetanus vaccine 743336183 Z23 Administra tion of pneumococcal vaccine 95833813 Z23 Bursitis of shoulder 239 315601 M75.50 Refer for PT. If persistent /worse will refer for injection vs PMR consult. Generalize d anxiety disorder 22012381 F41.1 Pt has been successful ly weaning down dose. Will continue and call with any problems. [id number] Onur Dela Cruz MD Main Office [address] [address] [place] [address] 10/22/2017 11:06:55 10/22/2017 12:09:23 Adult health examination 752000641 Z00.00 Immunizati on status utd. Will screen based on risk factors. Breast and colon cancer screening are utd. Regular dental and ophtho care advised as well as seat belt and sunscreen use. Distracted driving discussed. Advance directives in place. Osteopenia 155351004 M85 .9 Due for reassess ment in December. Regular weight bearing exercise and adequate dietary Ca/Vit D intake advised. Hypercholesterolemia 136 51145 E78.01 Will reassess this year and discuss mgmt based on CVD risk. [id number] Onur Dela Cruz MD Main Office [address] [address] [place] [id number] 12/09/2017 08:56:10 12/09/2017 10:01:02 Osteoporosis 26437516 M81.0 Treatment warranted based on her age and other comorbidit ies. Common/ser ious potential side effects of bisphospho theresa therapy discussed. Advised to call with any problems. Will reassess bone density in 2 years. Printed osteoporos is info and home exercises provided. [id number] Onur Dela Cruz MD Main Office [address] [address] [place] [address] 05/19/2018 10:35:25 05/19/2018 11:32:55 Fatigue 81486518 R53.83 Will start evaluation with lab work screening for more common metabolic etiologies . If labs normal will consider neurology evaluation given c/o of muscle weakness. Muscle pain 78486235 M79 .1 Weight loss 44085173 R63 .4 Not terribly significan t when trend is reviewed but context of other complaints , bears monitoring . Obstructiv e sleep apnea syndrome 49795612 G47.33 Has a history but not being followed by pulmonary who sees her for CLD. Will ask neuro to help with this as well. [id number] Onur Dela Cruz MD Main Office [address] [facility] [address] [facility] [address] 08/31/2018 14:37:58 08/31/2018 15:50:38 Parkinson's disease 70129047 G20 Majority of visit spent educating pt and her about the diagnosis to the best of my ability. Encouragin g her to follow through with treatment plan and to try medication . Will refer for PT as an adjunct. >25min spent with pt and her . Administra tion of pneumococcal vaccine 02832584 Z23 [id number] Onur Dela Cruz MD Main Office [address] [place] [address] 10/29/2018 08:24:43 10/29/2018 09:24:07 Adult health examination 009171877 Z00.00 Immunizati on status utd. Will screen based on risk factors. Breast and colon cancer screening are utd. Regular dental and ophtho care advised as well as seat belt and sunscreen use. Distracted driving discussed. Pt currently demonstrat es low risk for falls and no significan t cognitive decline. Advance directives in place and confirmed. Parkinson's disease 4904 9000 G20 Feels much better on meds. Completed PT and is doing exercises at home now. Neuro following. Obstructiv e sleep apnea syndrome 51485377 G47.33 Has a history but now being followed by pulmonary who sees her for CLD. Sore gums 66499366 K08.8 9 Hypercholesterolemia 136 22462 E78.01 Will reassess this year and discuss mgmt based on CVD risk. Varicella vaccination 68 271314 Z23 [id number] Onur Dela Cruz MD Main Office [address] [facility] [address] [facility] [address] 11/01/2019 08:20:38 11/01/2019 09:27:25 Adult health examination 353299055 Z00.00 Immunizati on status utd. Shingrix advised via local pharmacy. Will screen based on risk factors. Breast and colon cancer screening are utd. Regular dental and ophtho care advised as well as seat belt and sunscreen use. Distracted driving discussed. Pt currently demonstrat es low risk for falls and no significan t cognitive decline. Advance directives in place and confirmed. Varicella vaccination 68 742489 Z23 Screening for malignant neoplasm of breast 809623409 Z12.39 Screening for malignant neoplasm of colon 025575107 Z12.11 Screening for malignant neoplasm of cervix 307085109 Z12.4 Cervical cancer screening utd. Parkinson's disease 4904 9000 G20 Feels much better on meds. Completed PT and is doing exercises at home now. Neuro following. Osteoporosis 84596552 M8 1.0 Tolerating bisphospho theresa well. Continue current regimen and reassess BND. Regular weight bearing exercise advised. Hypercholesterolemia 136 95355 E78.01 Will reassess this year and discuss mgmt based on CVD risk. [id number] Onur Dela Cruz MD [email or web address] [address] [facility] [place] [address] 04/07/2020 08:00:01 04/11/2020 09:56:11 Exposure to viral disease 3500254704 60034 Z03.818 Risk for exposure discussed and proper advice given based on current guidelines . Basically these interactio ns are overall low risk and if proper social distancing and mask utilizatio n is in place then there is a low probabilit y for exposure particular ly in context of low incidence currently in state. [id number] Onur Dela Cruz MD [facility] [address] [facility] [place] [address] 11/10/2020 07:08:18 11/10/2020 12:55:20 Adult health examination 972514631 Z00.00 Immunizati on status utd. Shingrix advised via local pharmacy. Will screen based on risk factors. Breast and colon cancer screening are utd. Regular dental and ophtho care advised as well as seat belt and sunscreen use. Distracted driving discussed. Pt currently demonstrat es low risk for falls and no significan t cognitive decline. Advance directives in place and confirmed. Varicella vaccination 68 944920 Z23 Hypercholesterolemia 136 90010 E78.01 Will reassess this year and discuss mgmt based on CVD risk. History of anxiety state 824888683 F41.9 Screening for malignant neoplasm of colon 098755940 Z12.11 Overdue, deferred during pandemic. Pt will schedule f/u with Dr. Eldridge this year. Advised to call with any problems. Screening for malignant neoplasm of breast 459876229 Z12.39 Parkinson's disease 4904 9000 G20 Feels much better on meds. Completed PT and is doing exercises at home now. Neuro following. Osteoporosis 77809862 M8 1.0 Bone density improving on and tolerating bisphospho theresa well. Reassess BND in 2021. Regular weight bearing exercise advised. 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 Following with Dr. Parsons. [id number] Onur Dela Cruz MD Main Office [address] [facility] [address] [facility] [place] [address] 11/19/2021 08:59:17 11/19/2021 10:01:16 Adult health examination 852536822 Z00.00 Immunizati on status partially updated. Shingrix advised via local pharmacy. Will screen based on risk factors. Breast and colon cancer screening are utd. Regular dental and ophtho care advised as well as seat belt and sunscreen use. Distracted driving discussed. Pt currently demonstrat es low risk for falls and no significan t cognitive decline. Advance directives in place and confirmed. Varicella vaccination 68 974082 Z23 Hypercholesterolemia 136 86836 E78.01 Will reassess this year and discuss mgmt based on CVD risk. Screening for malignant neoplasm of breast 362072717 Z12.39 Administra tion of pneumococcal vaccine 77677745 Z23 Parkinson's disease 4904 9000 G20 Feels much better on meds. Completed PT and is doing exercises at home now. Neuro following. Osteopenia 293603567 M85 .9 Due for reassessme nt in June. If improving will d/c bisphospho theresa. Regular weight bearing exercise and adequate dietary Ca/Vit D intake advised. Family his tory of coronary arteriosclerosis 658751949 Z82.49 Given family history will check HS CRP and discuss asa/statin if elevated. Adult bronchiectasis 510 92574 J47.9 [id number] Bob Yepez PA-C [facility] [address] [facility] [address] [facility] [place] [address] 12/18/2021 08:57:56 12/18/2021 12:23:20 COVID-19 490648029 U07.1 recently dx'd c covid, being rx'd c paxlovid - pt just had home covid test + this am - so will also rx her c paxlovid also rec prn tyl, alee, ns spray / supportive otc measures as well Counseling 769469723 Z71 .9 Health advice, education or counseling done for COVID 19 [id number] [facility] Spears [facility] [address] [facility] [address] [facility] [place] [address] 02/01/2022 09:24:25 02/04/2022 08:27:11 Cough 07497454 R05.1 Will treat symptomati isabel and cover with flu antiviral given confirmed recent exposure, Pt was advised to perform COVID testing on herself as well and call immediatel y if positive. Exposure t o Influenzavirus 171593049 Z20.828 Muscle pain 35042573 M79 .10 Advised to use APAP/ibupr ofen PRN with fluids/krishan d. [id number] [facility] Del[facility] [address] [facility] [address] [facility] [place] [address] 02/08/2022 08:12:54 02/08/2022 14:18:19 Radiologic infiltrate of lung 840481567 R91.8 Despite recent long car ride (with regular breaks) PE risk remains low given other more likely explanatio n. Would check d-dime and chest CT if response to PNA treatment is not adequate. Otherwise will arrange 1 month f/u CXR to confirm resolution . Adult bronchiectasis 510 97696 J47.9 CXR report forwarded to Dr. Chapman. Pt will need to follow up with him sooner than scheduled if pulmonary complicati ons develop. Pleurisy 211394118 R09.1 Improved on 1 day of abx. Call if persistent /worse. Pneumonia 986353666 J18. 9 Mot likely explanatio n for infiltrate s, and given rapid clinical response coverage seems adequate currently. Advised to call with any issues on Augmentin and if not continuing to slowly improve. [id number] Onur Dela Cruz MD Main Office [address] [facility] [address] [facility] [place] [address] 07/07/2023 13:24:36 07/07/2023 14:54:27 Adult health examination 991117844 Z00.00 Immunizati on status partially updated. COVID, flu and RSV advised via local pharmacy. Will screen based on risk factors. Breast and colon cancer screening are utd. Regular dental and ophtho care advised as well as seat belt and sunscreen use. Distracted driving discussed. Pt currently demonstrat es low risk for falls and no significan t cognitive decline. Advance directives in place and confirmed. Hypercholesterolemia 136 61061 E78.01 Will reassess this year and discuss mgmt based on CVD risk. Osteopenia 006198525 M85 .9 Bisphospho theresa stopped last year. Due for reassessme nt in 07/2024. If improving will d/c bisphospho theresa. Regular weight bearing exercise and adequate dietary Ca/Vit D intake advised. Screening for malignant neoplasm of breast 965955677 Z12.39 Parkinson's disease 4904 9000 G20.A1 Feels much better on meds. Completed PT and is doing exercises at home now. Neuro following. Family his tory of coronary arteriosclerosis 414187414 Z82.49 Given family history will check HS CRP and discuss asa/statin if elevated. Adult bronchiectasis 510 [address] Parsons. 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 [address] [facility] [place] [address] 07/25/2023 09:55:04 07/25/2023 11:25:42 Hypercholesterolemia 42127824 E78.01 Based on current CVD risk score statin therapy was offered and accepted after discussing the pathophysi ology of atheroscle rosis at length. Chronic ki dney disease stage 3A 444199538 N18.31 Recent Cr was up to 1.1, Will go for labs when better hydrated including UA leticia. [id number] Onur Dela Cruz MD Main Office [address] [facility] [address] [facility] [place] [address] 07/09/2024 10:07:26 07/09/2024 11:13:54 Adult health examination 755715495 Z00.00 Shingrix, COVID and RSV advised via local pharmacy. Will screen based on risk factors. Breast and colon cancer screening are utd. Regular dental and ophtho care advised as well as seat belt and sunscreen use. Distracted driving discussed. Pt currently demonstrat es low risk for falls and no significan t cognitive decline. Advance directives in place and confirmed. Influenza vaccine needed [id number] 106 Z23 65 YEARS AND OLDER Bone density finding 385 [id number] M85.89 Hypercholesterolemia 136 90781 E78.01 Will reassess this year and discuss mgmt based on CVD risk. Osteopenia [id number] M85 .9 Bisphospho theresa stopped in 2022. Due for reassessme nt in 07/2024. Regular weight bearing exercise and adequate dietary Ca/Vit D intake advised. Screening for malignant neoplasm of breast [id number] Z12.39 Parkinson's disease 4904 9000 G20.A1 Feels much better on meds. Completed PT and is doing exercises at home now. Neuro following. Family his tory of coronary arteriosclerosis [id number] Z82.49 Given family history will check HS CRP and discuss asa/statin if elevated. Adult bronchiectasis [address] Parsons. Administra tion of viral vaccine [id number] Z29.11 Health Concerns Section Related Observation LastModified by Organization Detai ls LastModified Time None Recorded Concern Status LastModified by Organization Details LastModified Time None Recorded Advance Directives Directive Y: HCP/ -Harvinder Payers Encounter Date Sequence Insurance Name Policy Number Policy Ann Covered Member ID Ann Member ID Guarantor Name 02/01/2022 2 [facility] [id number] Brianna Torres [id number] Brianna Torres 02/01/2022 1 [place]: [employer] Brianna Torres [id number] Brianna Torres 02/08/2022 2 [facility] [employer] [facility] [id number] Brianna Torres [id number] Brianna Torres 02/08/2022 1 [place]IC[place]: [employer] Brianna Torres [id number] Brianna Torres 07/07/2023 2 [facility] [employer] retargeting [facility] [id number] Brianna Torres [id number] Brianna Torres 07/07/2023 1 [place]: [facility] Brianna Torres [id number] Brianna Torres 07/25/2023 2 [facility] [id number] Brianna Torres [id number] Brianna Torres 07/25/2023 1 MED[place]ARE [place]: [facility] Brianna Torres [id number] Brianna Torres 07/09/2024 2 [facility] [id number] Brianna Torres [id number] Brianna Torres 07/09/2024 1 MEDICARE [place]: [facility] Brianna Torres [id number] Brianna Torres Notes Date Note Type Note Provider Name and Address Organization Details Recorded Time 2 text/html CoughReported bypatient.Quality:harsh Severity:moderate Duration:constant Timing:actual date: (01/29) Context:non-smoker Associated Symptoms:no fever; no chills; no nausea; no vomitingNotes:Was visiting grandchildren in [place] over weekend. Children were symptomatic with URI's and patient/her developed symptoms upon return. One of the granchildren ultimately was diagnosed with influenza. She did not test for COVID but states that her hsband was negative. She has had flu vaccine as well as COVID series +1 booster. Doris lambert [facility] 02/04/2022 10:21:28 2 text/html CoughReported bypatient.Quality:harsh Severity:moderate Duration:constant Timing:actual date: (01/29) Context:non-smoker Associated Symptoms:no fever; no chills; no nausea; no vomitingNotes:Was visiting grandchildren in [place] over weekend of 01/26. Children were symptomatic with URI's and patient/her developed symptoms upon return. One of the granchildren ultimately was diagnosed with influenza. She did not test for COVID but states that her was negative last week. I prescribed her Tamiflu on 02/01 and she called earlier this week to report that she is not feeling better. Yesterday she reported having left sided pleuritic symptoms, so I referred her for a CXR which showed bibasilar infiltrates. I also prescribed her Augmentin yesterday and she already reports symptom improvement after 2 doses. States that her tested positive for flu in the last 24 hours. She has chronic bronchiectasis which she sees Dr. aPrsons for, Has had flu vaccine as well as COVID series +1 booster. Onur Dela Cruz MD [address], [id number], [facility] 02/08/2022 13:03:43 3 text/html Medicare Annual Wellness VisitReported bypatient.Diet and Nutrition:healthy diet Fracture Risk:no history of fractures Physical Activity:exercises on a regular basis Depression Risk:no significant changes in weight; no sleep disturbances or insomnia; no history of depression Concentration and Memory:no memory lapses or loss; does not forget words Speech/Motor difficulties:no speech difficulties; no difficulty writing/copying Hearing:no loss of hearing Vision:slow partial vision loss; reading glasses Activities of Daily Living:able to bathe with limited or no assistance; able to dress with limited or no assistance; able to get out of chair or bed with limited or no assistance; able to toilet with limited or no assistance Instrumental Activities of Daily Living:able to do house work with limited or no assistance; able to grocery shop with limited or no assistance; able to manage medications with limited or no assistance; able to manage money with limited or no assistance; able to prepare meals with limited or no assistance Falls Risk Assessment:no frequent falls while walking; no fall in the past year; no fall since last visit; no dizziness/vertigo Home Safety:no unsafe sweetie hazzards; working smoke/CO detectors; use of seatbelts; no fire arms; has hand bars in the bathroom/shower; good lighting in the home Onur Dela Cruz MD [address], [phone], [facility] 07/07/2023 14:51:50 3 text/html HyperlipidemiaReported bypatient.Type of hyperlipidemia:hypercholest erolemia Duration:chronic Control:not at goal Current Therapy:last cholesterol level: (253); last LDL level: (158); last triglyceride level: (80); last HDL level: (79) Compliance:compliant; compliant with diet; exercises Complications:no coronary artery disease; no peripheral artery disease; no cardiovascular diseaseNotes:Current CVD risk is 9.9% Recent fasting labs showed a Cr of 1.1 and GFR again <60. Onur Dela rCuz MD [address], [phone], [facility] 07/25/2023 11:24:43 text/html Medicare Annual Wellness VisitReported bypatient.Diet and Nutrition:healthy diet Fracture Risk:no history of fractures Physical Activity:exercises on a regular basis Depression Risk:never feels sad, empty, or tearful; no loss of interest in activities; no significant changes in weight; no sleep disturbances or insomnia; no history of depression Concentration and Memory:no memory lapses or loss; does not forget words Speech/Motor difficulties:no speech difficulties; no difficulty writing/copying Hearing:no loss of hearing Vision:slow partial vision loss; reading glasses Activities of Daily Living:able to bathe with limited or no assistance; able to dress with limited or no assistance; able to get out of chair or bed with limited or no assistance; able to toilet with limited or no assistance Instrumental Activities of Daily Living:able to do house work with limited or no assistance; able to grocery shop with limited or no assistance; able to manage medications with limited or no assistance; able to manage money with limited or no assistance; able to prepare meals with limited or no assistance Falls Risk Assessment:no frequent falls while walking; no fall in the past year; no fall since last visit; no dizziness/vertigo Home Safety:no unsafe sweetie hazzards; working smoke/CO detectors; use of seatbelts; no fire arms; has hand bars in the bathroom/shower; good lighting in the home Onur Dela Cruz MD [address], [phone], [facility] 07/09/2024 11:14:29 OBGyn Episode No OBEpisode recorded.
== END 2024-12-27 09:41 | disposition home or self-care (01) ==
LOC: HO.HSMS 08:29
PROVIDERS: PCP Pediatrics; Visit Provider Nurse Practitioner Family
DX: G20.A1 Parkinson's disease without dyskinesia, without mention of fluctuations (principal); R13.10 Dysphagia, unspecified
CPT/HCPCS: 99214

== ENCOUNTER 2024-12-27 08:28 | Outpatient (REF) | payer MEDICARE, OTHER, SELFPAY ==
--- NOTE | ~2024-12-27 | XR_ITS ---
CLINICAL HISTORY: J18.9 - Pneumonia, unspecified organism 2 view chest x-ray. Comparison: None Findings: Increased lung volumes. Lungs are clear. No pneumothorax or pleural effusion. Heart size normal. No passive venous congestion. No midline shift or tracheal deviation. No acute fracture. Partial left mastectomy versus lumpectomy Impression: 1. Hyperinflated lungs. No airspace disease to suggest active alveolitis This document has been electronically signed by: Aleksandr Bhagat MD on 12/28/2024 12:45:25
== END 2024-12-27 08:29 | disposition home or self-care (01) ==
LOC: HO.XRAY 08:28
PROVIDERS: PCP Pediatrics; Visit Provider Nurse Practitioner Family
DX: J18.9 Pneumonia, unspecified organism (principal); J70.1 Chronic and other pulmonary manifestations due to radiation; J47.9 Bronchiectasis, uncomplicated; G20.A1 Parkinson's disease without dyskinesia, without mention of fluctuations; R13.10 Dysphagia, unspecified
CPT/HCPCS: 71046; 99212

== ENCOUNTER 2024-12-27 09:33 | Outpatient (AMB) | payer MEDICARE, OTHER, SELFPAY ==
[2024-12-27 09:36] VITALS: BP 112/66; PULSE 68; O2SAT 97; BMI 21.6
--- NOTE | 2024-12-27 09:36 | A.OFFVIS_ITS ---
Vital Signs 12/27/24 09:36 Height 5 ft 4 in Weight 125 lb 10.616 oz BMI 21.6 BP 112/66 Blood Pressure Location Rt brachial Position Sitting Pulse 68 Pulse Source Pulse Oximeter Pulse Oximetry (%) 97 Oxygen Delivery Method Room Air Intake Visit Reasons: Dyspnea Allergies No Known Allergies Allergy (Verified 12/27/24 09:40) HPI Comments Details: The patient is a 69-year-old woman with a known history of breast cancer status post surgery and radiation to the left breast now with some localized bronchiectatic changes along with radiation fibrosis. She is recently diagnosed with Parkinson's disease. There was a question of some underlying obstructive sleep apnea. She had a home sleep study then followed by a lab study demonstrating no evidence of any sleep apnea. She did try the CPAP for appeared of time but she could not tolerate any ways. She is happy that she does not have to use it. She has history of pneumonia primarily on the left side. She does developed episodic chest discomfort and also some mucus production with some mucus plugs. But the last week she started developing worsening shortness of breath and coughing along with left-sided chest discomfort and came in to be evaluated. Moderate severity. Today however is better she denies any more chest discomfort in her breathing is back to normal 04/11/2020 the patient is here for pulmonary follow-up visit. Overall she is feeling better. She is using the flutter valve with good response. Her cough is overall better. She denies any significant shortness of breath or chest pain. She has been sleeping well trying to sleep on her side to minimize her apnea. Her Parkinson's seems to be controlled with medications and she continues to exercise regularly. We did review her CT scan of the chest demonstrating new pulmonary nodules measuring 2-3 mm in size. But overall compared to [address] scan looked improved with less mucus plugging less tree-in-bud and less areas of airspace disease. She still has some radiation in use injury to her left lung after having breast cancer. But overall that area stable. She does have some debris in the esophagus concerning for the possibility of micro aspirations in the risks of recurrent pneumonias. Therefore we talked about the importance of alternating her liquids and solids and sleeping elevated and minimizing the amount she eats at 1 time. All this will help decrease her risk of recurrent pneumonias. Based on her pulmonary nodules will plan repeat her CT scan in 1 year. 12/18/2020 the patient is here for pulmonary follow-up visit. Overall she is doing better. She has responded very well to her rescue inhaler in addition to using her flutter valve. She is using the flutter valve twice a day. She is able to clear her secretions. She denies any cough or any significant shortness of breath. She is trying to walk between 2-4 miles a day. She is working on deep breathing exercises. Appears that her Parkinson's is stable with her medications. In the meantime her sleep is better. She is sleeping a full night's sleep on her side and has not had any significant apneic episodes or snoring. Her Duncan score is well below 8 which is reassuring. In addition to that when she did have a CT scan of the chest back in February 2020 demonstrating new pulmonary nodules measuring 2-3 mm in size. This is done at [facility]. Will plan to repeat the CT scan 18 months from that 1 which being August 2021. The patient will be seen in the office after the CT scan to revi stella together. 10/08/2021 the patient is here for a pulmonary follow-up visit. Overall the patient has been doing well. She continues use her Acapella valve and a regular basis. Denies any significant mucus production or clearance. Denies any pleuritic discomfort denies any recent lower respiratory infections. Her Parkinson's appears to be stable. She is monitoring closely her swallow. Denies any aspiration events. She is sleeping elevated. We did review her last CT scan of the chest that she had back in March 2021. Was personally by me. Does have minimal changes in the left base with some degree of tree in budding suggesting some degrees of mucus plugging and or bronchiolitis. However, is minimal. No other new findings. We did talk about considering hypertonic saline for chest physical therapy that is something she can use along with her Acapella valve. But at this point she is doing well hold off on the therapy. Will continue with current respiratory therapy and will follow-up in the fall of 2021. The patient has any issues prior to that she is to call for an appointment. 09/26/2022 the patient is here for pulmonary follow-up visit. She continues to do well. Back in January 2022 she did develop bilateral pneumonia. The patient was treated with antibiotics and then subsequently had a repeat chest x-ray in February 2022 demonstrating interval resolution of the airspace disease. I did personally reviewed the x-rays. They do look better although she still has some chronic changes at the bases. Clinically the patient feels better at this time. If the patient develops any respiratory complaints I will have an x-ray order available that she can just come in and get it. She is not using her rescue inhaler. The patient overall denies any chest pains or cough or mucus congestion. In regards of the Parkinson's disease appears to be stable. She is on medication and she feels like she is helping. She does not see any evidence of any progression. Her sleep is well. Denies any headaches in the morning. No significant snoring that is noted. Therefore no additional sleep studies are warranted. 12/25/2023 the patient is here for a pulmonary follow-up visit. Overall she is doing well. Denies any respiratory infections since the last visit about year ago. This is very. Him. As far as the Parkinson's disease appears to be stable. She has been very active with her exercise and keeping up. Denies any difficulty with her eating. Although she is very cautious. Very small bites. She does chin talk and she also alternate liquids and solids. She needs to monitor very closely because of the Parkinson's. No recent imaging to review. Her last chest x-ray demonstrated the airspace disease. She should have another x-ray at some point just to have a new baseline. 12/27/2024 the patient is here for a pulmonary follow-up visit. Overall she has been doing well. Denies any worsening cough. She is watching closely her swallow. Sometimes she does get food stuck. She is able to clear. She has not had any obvious aspirations. She does follow that dysphagia recommendations. She did not have a chest x-ray. The last x-ray that we have available from 2021 demonstrates that she had pneumonia at that time. Will have her get an x-ray today to make sure we have a new baseline. She also has some lordosis. We did provide her with an incentive spirometer. We did talk about her posture and Cooper that limit her respiratory capacity. Therefore she will going to look into online pulmonary rehabilitation and start deep breathing exercises at this time. Her Parkinson's seems to be unchanged. She is following closely with Neurology. The patient follow-up in a year's time. [facility] Medical History Breast cancer Bronchiectasis COVID-19 virus infection Parkinson disease Pulmonary nodules Radiation fibrosis of lung Recurrent pneumonia Family History Father Colon cancer Pancreatic cancer Mother Heart disease Brother Heart disease Sister Breast cancer Social History Alcohol intake: never Patient Tobacco Use Status: Never used Tobacco Physical Exam Vital Signs: Last Vital Signs Pulse 68 12/27/24 09:36 BP 112/66 12/27/24 09:36 Pulse Ox 97 12/27/24 09:36 Oxygen Delivery Method Room Air 12/27/24 09:36 BMI result Body Mass Index 21.6 Const General: alert HEENT General nose exam: Abnormal external nose present and Nasal discharge present Neck Neck: Yes normal visual inspection, Yes full ROM and Yes no lymphadenopathy Chest Chest palpation & inspection: normal inspection of the chest Resp Effort & Inspection: normal respiratory effort Auscultation: clear to auscultation bilaterally Cardio Rate: regular rate Rhythm: regular rhythm Heart sounds: S1 normal heart sound present and S2 normal heart sound present GI Palpation (GI): Soft to palpation and nontender Auscultation: normal bowel sounds Skin General skin exam: rashes and/or lesions noted Assessment & Plan Assessment & Plan (1) Pulmonary nodules: Code(s): R91.8 - Other nonspecific abnormal finding of lung field Category: Medical (2) Radiation fibrosis of lung: Code(s): J70.1 - Chronic and other pulmonary manifestations due to radiation Category: Medical (3) Bronchiectasis: Code(s): J47.9 - Bronchiectasis, uncomplicated Category: Medical Qualifiers: Bronchiectasis type: uncomplicated Qualified Code(s): J47.9 - Bronchiectasis, uncomplicated (4) Recurrent pneumonia: Code(s): J18.9 - Pneumonia, unspecified organism Category: Medical Plan CPT with flutter valve start ISS start on line pulmonary rehab ipratropium nasal spray as needed CXR today F/U 1 year Orders: Orders XR chest 2V Today J18.9 - Pneumonia, unspecified organism Coding Level of Care Code Est Pt Level 4 (01040) Diagnoses Pulmonary nodules R91.8 Radiation fibrosis of lung J70.1 Bronchiectasis without complication J47.9 Bronchiectasis type: uncomplicated Recurrent pneumonia J18.9 Time Spent (min) 16
== END 2024-12-27 10:06 | disposition home or self-care (01) ==
LOC: HO.HPS 09:33
PROVIDERS: PCP Pediatrics; Visit Provider Hospitalist
DX: R91.8 Other nonspecific abnormal finding of lung field (principal); J70.1 Chronic and other pulmonary manifestations due to radiation; J47.9 Bronchiectasis, uncomplicated; J18.9 Pneumonia, unspecified organism
CPT/HCPCS: 99214

== ENCOUNTER → 2024-12-27 10:22 | Outpatient (BNV) | payer MEDICARE, OTHER, SELFPAY | PROVIDERS: PCP Pediatrics; Visit Provider Radiology Diagnostic Radiology | DX: J18.9 Pneumonia, unspecified organism (principal) | CPT/HCPCS: 71046 ==